=== PATIENT | female | born 1940 | race Caucasian/White ===

== ENCOUNTER 2024-11-17 17:35 | Emergency (ER) | payer MEDICARE ==
[~2024-11-17] VITALS: Ht 165.1 cm; Wt 51.7 kg
[~2024-11-17 17:35] MED LIST: ATENOLOL25 MG PO; ATORVASTATIN CA20 MG PO; BAYER CHEWABLE81 MG PO; HYDROCODON-ACE1 EA10 PO; LEVOTHYROXINE50 MCG PO; LIDODERM700 MG TOP; LISINOPRIL2.5 MG PO; MIRALAX17 GM PO; ONDANSETRON ODT8 MG PO
[2024-11-17] MEDS ORDERED: IBLOOD GLUCOSE TEST STRIP 1 EA TEST VI ONE (18:15)
[2024-11-17 18:28] LABS: BASOPHILS 0.4 % (0-2); EOSINOPHILS 0.3 % (0-6); HEMATOCRIT 39.5 % (35.0-50.0); HEMOGLOBIN 13.5 g/dL (12.0-18.0); LYMPHOCYTES 10.4 % (24-44); MCH 32.4 (27-36); MCHC 34.3 g/dl (30-36); MCV 94.7 fl (81-99); MONOCYTES 13.5 % (0-12); NEUTROPHILS 75.4 % (39-80); PLATELET COUNT 242 K/uL (140-440); RBC 4.17 M/ul (4.3-5.7); RDW 13.3 (10.5-15.0)
[2024-11-17 18:45] LABS: ALBUMIN 3.4 g/dL (3.4-5.0); ALBUMIN/GLOBULIN RATIO 0.81 (1.1-2.4); ALCOHOL, MEDICAL <3 ng/dL (<3); ALKALINE PHOSPHATASE 176 U/L (46-116); ALT (SGPT) 21 U/L (14-59); ANION GAP 11.9 (7-21); AST (SGOT) 18 U/L (15-37); BILIRUBIN, TOTAL 0.3 mg/dL (0.2-1.0); BUN/CREATININE RATIO 17.24 (6.0-28.6); CARBON DIOXIDE 28 mmol/L (21-32); CHLORIDE 102 mmol/L (98-107); CREATININE, SERUM 1.16 mg/dL (0.55-1.02); GLOMERULAR FILTRATION RATE,EST 46 mL/min (>60); POTASSIUM 3.9 mmol/L (3.5-5.1); PROTEIN, TOTAL 7.6 g/dL (6.4-8.2); UREA NITROGEN 20 mg/dL (7-18)
[2024-11-17 19:10] LABS: BILIRUBIN, URINE NEGATIVE (negative); BLOOD/HGB, URINE TRACE-I (Negative); KETONE, URINE NEGATIVE (Negative); LEUK ESTERASE, URINE SMALL (negative); NITRITE, URINE NEGATIVE (negative)
[2024-11-17 19:19] LABS: CRYSTALS, URINE NONE SEEN (0-1+); EPITHELIAL CELLS, URINE SQUAMOUS 3+ /lpf (0-1+); WHITE BLOOD CELLS, URINE 21-40 /HPF (0-5)
[2024-11-17 19:20] LABS: BACTERIA, URINE 1+ /hpf (negative); CASTS, URINE NONE SEEN \\lpf; COLLECTION TYPE, URINE CLEAN CATCH; REFLEX CULTURE, URINE No (No)
[2024-11-17 19:24] LABS: AMPHETAMINES, URINE NEGATIVE (NEGATIVE); BARBITURATES, URINE NEGATIVE (NEGATIVE); BENZODIAZEPINE, URINE NEGATIVE (NEGATIVE); BUPRENORPHINE, URINE NEGATIVE (NEGATIVE); CANNABINOID, URINE NEGATIVE (NEGATIVE); COCAINE, URINE NEGATIVE (NEGATIVE); ECSTASY, URINE NEGATIVE (NEGATIVE); FENTANYL, URINE NEGATIVE (NEGATIVE); METHADONE, URINE NEGATIVE (NEGATIVE); OPIATES, URINE NEGATIVE (NEGATIVE); OXYCODONE, URINE NEGATIVE (NEGATIVE); PHENCYCLIDINE, URINE NEGATIVE (NEGATIVE)
[2024-11-17] MEDS ORDERED: AMOXICILLIN/CLAVULANATE K 875 MG TAB PO ONE (19:45)
[2024-11-17] MEDS ORDERED: FAMOTIDINE 20 MG/ 2 ML VIAL IV ONE (19:45)
--- NOTE | 2024-11-17 19:54 | EKG ---
[facility] [address] [place] [address] Signed Sinus rhythm with premature atrial complexes in a pattern of bigeminy Otherwise normal ECG When compared with ECG of 12-MAY-2020 20:50, premature ventricular complexes are no longer present Confirmed by Frederick Costa MD ([id number]) on 11/17/2024 7:54:36 PM Electronically Signed By: FREDERICK COSTA MD 11/17/241953 PATIENT NAME: AMELIA LEE Sheela Electrocardiogram DATE OF : 36 PHYSICIAN: FREDERICK COSTA MD REPORT #: [id number] REPORT IS CONFIDENTIAL AND NOT TO BE RELEASED WITHOUT AUTHORIZATION
[2024-11-17 20:19] LABS: CORONAVIRUS COVID-19 AG NEGATIVE (NEGATIVE); INFLUENZA A AG NEGATIVE (NEGATIVE); INFLUENZA B AG NEGATIVE (NEGATIVE)
[2024-11-17] MEDS ORDERED: CEPHALEXIN500 MG PO (21:11)
[2024-11-17] MEDS ORDERED: CEPHALEXIN500 M1 PO (21:11)
[2024-11-17 21:20] VITALS: BP 138/91
== END 2024-11-17 21:20 | disposition home or self-care (01) ==
LOC: ED 17:35
PROVIDERS: Emergency Medicine; Internal Medicine
DX: N39.0 Urinary tract infection, site not specified (principal); I10 Essential (primary) hypertension; E03.9 Hypothyroidism, unspecified; F17.200 Nicotine dependence, unspecified, uncomplicated; Z88.6 Allergy status to analgesic agent; Z79.82 Long term (current) use of aspirin; Z79.890 Hormone replacement therapy; Z79.899 Other long term (current) drug therapy
CPT/HCPCS: 36415; 51701; 71045; 80053; 80307; 81001; 83880; 84484; 85025; 87088; 93005; 93010; 99285-25; G0480

== ENCOUNTER 2025-05-30 02:12 | Inpatient (IN) | payer MEDICARE ==
[~2025-05-30] VITALS: Ht 165.1 cm; Wt 54.2 kg
[2025-05-30] VITALS (23 sets, daily range): BP systolic 64–114; BP diastolic 36–81
[~2025-05-30 02:12] MED LIST changes: +CEPHALEXIN500 M1 PO; +CEPHALEXIN500 MG PO
[2025-05-30] MEDS ORDERED: NOREPINEPHRINE BITARTRATE 250 ML IV SCH ×2 (02:30→20:45)
[2025-05-30] MEDS ORDERED: SODIUM CHLORIDE 0.9% 1,000 ML IV PRN (02:30)
[2025-05-30] MEDS ORDERED: SODIUM CHLORIDE 0.9% 1,000 ML IV ONE (02:30)
[2025-05-30] MEDS ORDERED: MORPHINE SULFATE 4 MG/ML VIAL IV ONE (02:30)
[2025-05-30 02:42] LABS: BASOPHILS 0.2 % (0.1-1.2); EOSINOPHILS 1.0 % (0.7-5.8); LYMPHOCYTES 16.6 % (19.3-51.7); MCH 31.7 PG (25.6-32.2); MCHC 33.3 g/dL (32.2-35.5); MCV 95.4 fL (79.4-94.8); MONOCYTES 6.2 % (4.7-12.5); NEUTROPHILS 75.4 % (34.0-71.1); RBC 4.32 M/uL (3.93-5.22)
[2025-05-30 02:58] LABS: ALT (SGPT) 1.0 U/L (14-59); AST (SGOT) 18.0 U/L (15-37); GLOMERULAR FILTRATION RATE,EST 42.0 mL/min (>60); INR 1.06 (0.80-1.30); PROTEIN, TOTAL 7.6 g/dL (6.4-8.2); PROTIME 13.1 Sec (11.2-14.2); UREA NITROGEN 20.0 mg/dL (7-18)
[2025-05-30 03:03] LABS: LACTIC ACID, BLOOD 3.1 mmol/L (0.4-2.0)
[2025-05-30 03:23] LABS: BLOOD/HGB, URINE NEGATIVE (Negative); KETONE, URINE NEGATIVE (Negative); LEUK ESTERASE, URINE NEGATIVE (negative); NITRITE, URINE NEGATIVE (negative)
[2025-05-30] MEDS ORDERED: SODIUM CHLORIDE 0.9% 1,000 ML IV SCH (04:00)
[2025-05-30] MEDS ORDERED: ETOMIDATE 40 MG/20 ML VIAL IV ONE (04:00)
[2025-05-30] MEDS ORDERED: HYDROmorphone HCL 1 MG/ML SYR IV PRN (04:00)
[2025-05-30 06:02] LABS: ABO O; ANTIBODY SCREEN NEGATIVE; RH POSITIVE
[2025-05-30] MEDS ORDERED: LIDOCAINE HCL 2% 5 ML SDV ONE (06:08)
[2025-05-30] MEDS ORDERED: ROCURONIUM BROMIDE 50 MG/5 ML SYR ONE (06:08)
[2025-05-30] MEDS ORDERED: PIPERACILLIN/TAZOBACTAM 4.5 GM in SODIUM CHLORIDE 0.9% 100 ML IV SCH (06:15)
[2025-05-30] MEDS ORDERED: SEVOFLURANE 250 ML BTL ONE (06:22)
[2025-05-30] MEDS ORDERED: SUCCINYLCHOLINE IN 0.9% NACL 200 MG/10 ML SYRINGE ONE (06:29)
[2025-05-30] MEDS ORDERED: PROCHLORPERAZINE EDISYLATE 10 MG/2 ML VIAL IV PRN (07:30)
[2025-05-30] MEDS ORDERED: LIDOCAINE 2% VISCOUS 6 ML SYR TOP ONE (07:30)
[2025-05-30] MEDS ORDERED: LACTATED RINGER'S 1,000 ML IV SCH (07:30)
[2025-05-30] MEDS ORDERED: SEVOFLURANE 250 ML BTL INH ONE ×2 (07:50→14:49)
--- NOTE | 2025-05-30 07:50 | NUR ---
THIS RN TOOK OVER CARE AT THIS TIME FOR PETROLEUM REFINERY OPERATOR. PATIENT IS DROWSY BUT WAKEFUL. PATIENT NEEDS 2L OXYGEN AT THIS TIME. VITALS STABLE. WARM BLANKETS APPLIED D/T LOW CORE TEMP. PER MD FAMILY WAS CALLED AND MESSAGE LEFT FOR FAMILY. PATIENT IS RESTING ON HER BACK. SCDS PLACED. NG TUBE HAS BLOOD TINGED RETURN. DECREASED SUCTION TO LOW INT. SUCTION.
[2025-05-30] MEDS ORDERED: SOD PHOSPHATE/SOD BIPHOSPHATE 132 ML BTL PR SCH (08:00)
--- NOTE | 2025-05-30 08:21 | NUR ---
UR CLINICAL REVIEW: 2 MN FOR VERSALUS- PER VENETIAN BLIND WORKER MEETS INPT FOR COLONIC OBSTRUCTION WITH HYPOTENSION MEDICARE INPT 05/30/25 @ 0732 ORDER MATCHES REG NO AUTH REQUIRED PER MEDICARE GUIDELINES DISCHARGE TO HOME WHEN STABLE
--- NOTE | 2025-05-30 08:37 | NUR ---
05/30/25 0837 [address] Pamela 0733- PT TAKEN TO ROOM 127 VIA BED. PT SEMI MATOS IN BED, NON REACTIVE TO STIMULUS, OPA IN PLACE, BREATHING EVEN AND NON LABORED ON 6L O2 PER MASK. LR INFUSING TO L IJ TRIPLE LUMEN CENTRAL LINE. ABD FLAT, SOFT. ORTEGA CATHETER WITH DARK YELLOW URINE DRAINING. NG TUBE TO RIGHT NARE, CONNECTED TO LOW INTERMITTENT SUCTION DRAINING YELLOW CONTENTS. ALL MONITORS IN PLACE INCLUDING ORTEGA TEMP MONITORING. 0740- PT REACTIVE TO STIMULUS, OPA REMOVED AT THIS TIME. PT HAS NO VERBAL RESPONSE, CLOSES EYES. O2 LEFT IN PLACE. 0743- PT MOVED TO ROOM AIR, CONTINUES TO OPEN EYES. PULLS ARM AWAY WHEN READJUSTING PULSE OX. PT HAS RED COLOR DRAINING IN NG TUBE AT THIS TIME, PRIMARY CCU RN AWARE. 0747- PT SATS DOWN TO 89-91% ON ROOM AIR, BREATHING EVEN AND NON LABORED. PT WILL OPEN EYES TO VERBAL BUT FALLS BACK TO SLEEP. NO VERBAL RESPONSE. O2 PLACED AT 2L PER NC. 0750- DOE MOSCOSO AT BEDSIDE, REPORT GIVEN AT THIS TIME. CARE OF PT TURNED OVER AT THIS TIME.
[2025-05-30] MEDS ORDERED: FAMOTIDINE 20 MG/ 2 ML VIAL IV SCH (09:00)
--- NOTE | 2025-05-30 09:00 | NUR ---
PATIENT REMAINS DROWSY BUT MORE WAKEFUL AT THIS TIME. CHANGED PATIENT ON MEDIUM/LARGE STOOL. STOOL IS ALL LIQUID WITH 2 MEDIUM SIZED BALLS OF STOOL. LINEN, GOWN, AND ATTENDS CHANGED. PATIENT CLEANED AND NEW WARM BLANKETS PROVIDED. NG TUBE IN PLACE WITH MINIMAL RETURN.
--- NOTE | 2025-05-30 10:00 | NUR ---
PATIENTS DAUGHTER AT THE BEDSIDE AND VISITING WITH PATIENT. PER PATIENTS DAUGHTER PATIENT DRINKS VERY MINIMAL WATER, FOOD, AND FIBER AT HOME AND STATES PATIENT GOES THROUGH THESE IMPACTIONS OF STOOL AT LEAST 1 TIME EVERY YEAR. PATIENT IS MORE ALERT AND TALKING WITH FAMILY AND STAFF. PATIENT HAS ATTENDS IN PLACE. PATIENT DENIES ANY OTHER NEEDS AT THIS TIME.
[2025-05-30] MEDS ORDERED: POLYETHYLENE GLYCOL 3350 BOTTLE PO ONE (10:45)
--- NOTE | 2025-05-30 11:07 | NUR ---
PT NOT AVAILABLE FOR VISIT. PROVIDED PRAYER.
--- NOTE | 2025-05-30 11:23 | NUR ---
MD GUEVARA NOTIFIED OF PATIENTS BLOOD PRESSURES TRENDING DOWN. PER MDF GIVE 250ML BULUS OVER 30 MIN. SEE ORDERS.
--- NOTE | 2025-05-30 11:40 | NUR ---
PATIENTS BLOOD PRESSURE CONTINUESD TO BE IN THE 70S SYSTOLIC PER MD GIVE ADDITIONAL BOLUS OF 250MLS OVER 30 MIN AFTER 1ST ONE IS COMPLETED.
[2025-05-30] MEDS ORDERED: LACTATED RINGER'S 500 ML IV ONE ×3 (11:45→17:00)
--- NOTE | 2025-05-30 11:48 | NUR ---
ADDITIONAL BOLUS IS INFUSING. PATIENTS BLOOD PRESSURE DECREASED TO 60'S STYSTOLIC PER MONITOR. STARTED BACK ON LEVOPHED GTT. WILL TITRATE NEEDED AND NOTIFY MD GUEVARA. PATIENT REPOSITIONED AT THIS TIME. PATIENT REPORTING PAIN IN STOMACH. UNABLE TO GIVE PAIN MEDICATION AT THIS TIME D/T LOW BLOOD PRESSURES. EDUCATED PATIENT AND FAMILY OF PLAN FO CARE.
--- NOTE | 2025-05-30 12:59 | NUR ---
MD NOTIFIED THAT PATIENT IS COMPLAINAG OF INCREASED STOMACH PAIN. PATIENT BLOOD PRESSURES ARE 80-90'S STSTOLIC ON 5MCG/MIN OF LEVOPHED. NEW ORDERS FOR BC, LACTIC ACID, AND FLUID CHANGES, AND ABX CHANGES. LAB AT THE [facility] NOW WILL BE IN TO [facility] PATIENT ATTENDS AFTER MEAL ROOM HAND IS FINISHED.
--- NOTE | 2025-05-30 12:59 | NUR ---
PATIENT RESTING IN BED. SON AT BEDSIDE. ANSWERS QUESTIONS. PATIENT LIVES IN APARTMENT, NO STAIRS. SHE LIVES ALONE. PATIENT HAS WALKER FOR DME. DOES NOT DRIVE. FAMILY MEMBERS PROVIDE ASSISTANCE WITH TRANSPORTATION. DEMOGRAPHICS VERIFIED. PLAN TO DC TO HOME. POTENTIAL NEED FOR SNF OR HOME HEALTH PENDING TREATMENT. WILL CONTINUE TO CHECK IN PATIENT IMPROVES. NO KNOWN CM NEEDS AT THIS TIME.
[2025-05-30] MEDS ORDERED: KETOROLAC TROMETHAMINE 15 MG/ML VIAL IV PRN (13:00)
[2025-05-30] MEDS ORDERED: PIPERACILLIN/TAZOBACTAM 4.5 GM in DEXTROSE 5% 100 ML IV SCH (14:00)
[2025-05-30 14:54] LABS: BASOPHILS 0.3 % (0.1-1.2); EOSINOPHILS 0 % (0.7-5.8); LYMPHOCYTES 3.7 % (19.3-51.7); MCH 31.4 PG (25.6-32.2); MCHC 31.4 g/dL (32.2-35.5); MCV 100.0 fL (79.4-94.8); MONOCYTES 5.2 % (4.7-12.5); NEUTROPHILS 90.4 % (34.0-71.1); RBC 4.17 M/uL (3.93-5.22)
--- NOTE | 2025-05-30 15:21 | NUR ---
MD MARIA NOTIFIED OF WBC LABS. STAFF ATTEMPTED TO DECREASE LEVOPHED AND WAS NOT SUCCESSFUL. PATIENBTS BP DECREASED TO 70'S SYSTOLIC. PATIENT CURRENTLY ON 10MCG/MIN. MD WILL BE IN TO SEE PATIENT IN A COUPLE HOURS.
--- NOTE | 2025-05-30 16:24 | NUR ---
patient reports abd pain 7-8. patients states its in the stomach area. upon light palpitation patient is very tender across entire abd region increased in the right/left lower abd. per patient its the same amount of pain that brought her into the ed. patient denies any nausea at this time. lactic acid level 5.1 on repeat.
[2025-05-30] MEDS ORDERED: VITAMIN D325 MCG PO (17:32)
--- NOTE | 2025-05-30 17:33 | NUR ---
medications reconciled using pharmacy records and patient interview
--- NOTE | 2025-05-30 18:00 | NUR ---
DILMA HPROVIDERS IN AT THE PATIENTS BEDSIDE WITH FMAILY, PATIENT, AND RN TO DISCUSS PLAN OF CARE. PATIENT REMAINS ON 8-10 MCG/MIN OF NEVOPHED. WILL CONTINUE TO TITRATE NECCESSARY. PATIENT IS GETTING A BOLUS OF FLUID AT THIS TIME. PATIENT CHANGED TODAY FOR 3 BMS. PATIENTS ABD IS VERY SENSITIVE TO PALPATION. PATIENT RATES PAIN 8/10. PRN MEDICATION WAS GIVEN WITH SOME IMPROVEMENT. PATIENTS COLOR IS IMPROVED A TTHIS TIME. LESS MOTTELING AROUND HER KNEES. ORTEGA CATH IN PLACE WITH CONCENTRATED URINE. 15-20MLS/HR. WILL ASS FLAGYL FOR ABX COVERAGE. LABS IN AM. CONTINUE TO TREND LACTIC ACID TONIGHT. CONTINUE WITH MIRALAX DOWN NG TUBE PER MDS.
--- NOTE | 2025-05-30 18:06 | EKG ---
[facility] [address] [facility] [place] [address] Signed Normal sinus rhythm Normal ECG When compared with ECG of 17-NOV-2024 18:12, premature atrial complexes are no longer present Questionable change in QRS axis Confirmed by EVAN GUEVARA MD ([id number]) on 05/30/2025 6:06:33 PM Electronically Signed By: EVAN GUEVARA 05/30/25 1806 PATIENT NAME: AMELIA LEE Electrocardiogram DATE OF : 36 PHYSICIAN: EVAN GUEVARA REPORT #: [id number] REPORT IS CONFIDENTIAL AND NOT TO BE RELEASED WITHOUT AUTHORIZATION
--- NOTE | 2025-05-30 20:09 | NUR ---
PATIENT RESTING IN BED ALERT AND ORIETNED AT THIS TIME. BEDSIDE REPORT FROM VIANCA MOSCOSO
--- NOTE | 2025-05-30 20:30 | NUR ---
ASSESSMENT COMPLETE, SCHEDULED ENEMA DONE, PATIENT NOTED TO HAVE LARGE LIQUID STOOL AT THIS TIME. CHECKED IN AT PATIENT ROOM, UPDATED ON CURRENT LEVOPHED RATE 12MCG/MIN, B/P STABLE, UPDATED WITH RECENT LACTIC 3.8, ORDERED 500ML BOLUS X1 AT THIS TIME, ORDER ALSO PLACED FOR LEVOPHED DUE TO NO CURRENT ORDER IN NOV. PATIENT REPORTS NO NAUSEA AT THIS TIME.
[2025-05-30] MEDS ORDERED: NOREPINEPHRINE BITARTRATE 250 ML IV ONE ×2 (20:38→20:40)
[2025-05-30] MEDS ORDERED: SODIUM CHLORIDE 0.9% 500 ML IV SCH ×2 (21:00→22:00)
--- NOTE | 2025-05-30 22:00 | NUR ---
PATIENT RESTING QUIETLY IN BED, EYES CLOSED, NO DISTRESS NOTED, ARLEEN IS SLEEPING AT BEDSIDE IN RECLINER.
--- NOTE | 2025-05-30 23:00 | NUR ---
ROUNDING IN ROOM, THIS RN GAVE UPDATES ON LEVOPHED AND B/P TREND. DISCUSSED HER LOW GRADE FEVER, NEW ORDER FOR OFIRMEV PRN. NOTED TO THAT PATIENTS B/P IS LOWEST WHEN SHE LAYS ON HER LEFT SIDE, VS FLAT OF RIGHT SIDE. SAID HE HAS AN ECHO ORDER FOR THE AM.
[2025-05-30] MEDS ORDERED: ACETAMINOPHEN 1,000 MG/100 ML VIAL IV PRN (23:30)
[2025-05-31] VITALS (26 sets, daily range): BP systolic 76–141; BP diastolic 44–113
--- NOTE | 2025-05-31 00:55 | NUR ---
PATIENT AWAKE, REQUESTED ICE CHIPS FLAVORED WITH APPLE JUICE. ARLEEN AT BEDSIDE IN RECLINER.
--- NOTE | 2025-05-31 00:59 | NUR ---
PATIENT ALERT TO RN IN ROOM AT BEDSIDE, CHECK DEPENDS, STOOL NOTED, PATIENT CHNAGED, ORTEGA CARE PROVIDED. PATIENT ALERT AND ORIENTED AT THIS TIME. SHE SAID SHE WOULD LIKE TO GO SOMEWHERE TO SMOKE. THIS RN EXPLAINED TO PATIENT THAT THIS CAMPUS/PROPERTY IS COMPLETELY SMOKE FREE, THEN ASKED PATIENT IF SHE WOULD LIKE A NICOTINE PATCH, SHE SAID, "NO."
[2025-05-31] MEDS ORDERED: LACTATED RINGER'S 500 ML IV ONE ×2 (03:00→07:15)
[2025-05-31 05:17] LABS: MCH 31.5 PG (25.6-32.2); MCHC 32.7 g/dL (32.2-35.5); MCV 96.3 fL (79.4-94.8); RBC 3.49 M/uL (3.93-5.22)
[2025-05-31 05:32] LABS: ALT (SGPT) 26.0 U/L (14-59); AST (SGOT) 40.0 U/L (15-37); BANDS, MANUAL DIFF 28; GLOMERULAR FILTRATION RATE,EST 32.0 mL/min (>60); LYMPHOCYTES, MANUAL DIFF 7; MONOCYTES, MANUAL DIFF 2; NEUTROPHILS, MANUAL DIFF 63; PROTEIN, TOTAL 4.8 g/dL (6.4-8.2); UREA NITROGEN 27.0 mg/dL (7-18)
--- NOTE | 2025-05-31 06:50 | NUR ---
NOTIFIED AT NURSES STATION OF ABNORMAL LABS, NEW ORDERS OF 500ML BOLUS OF LR AND 4G MAGNESIUM. ALSO ASKED THIS RN TO PLACE ORDER FOR KUB THIS AM AND ECHO. PATIENT CHANGED FOR MEDIUM STOOL THIS AM, BARRIER CREAM WIPES AND ORTEGA CARE PROVIDED, NOTING THAT HER BUTTOCKS ARE STARTING STARTING TO BECOME IRRITATED FROM FREQUENT WIPING.
[2025-05-31] MEDS ORDERED: MAGNESIUM SULFATE 2 GM/50 ML BAG IV SCH (07:30)
--- NOTE | 2025-05-31 07:45 | NUR ---
REPORT RECIVED FROM TUBE MAN RN. PATIENT IS IN BED RESTING THIS MORNING WITH NGT TO LOW INT. SUCTION WITH DARK RETURN. PATIENT REMAINS ON LEVOPHED AT 10 MCG/MIN. PATIENT ON 3L NC OVERNIGHT. BED ALARM IN PLACE FOR PATIENT SAFETY. CALL LIGHT IN REACH.
--- NOTE | 2025-05-31 08:02 | NUR ---
PATIENT RESTING IN BED EYES CLOSE, ALERT TO RN AT BEDSIDE. REPORTS NO NEEDS AT THIS TIME. MONITOR WIRES AND IJ INFUSION LINES UNTANGLED, PATIENT TURNS FROM SIDE TO SIDE FREQUENTLY.
--- NOTE | 2025-05-31 08:20 | NUR ---
THIS RN IN TO DO IV CHECKS PATIENT RESTING IN BED. PARUL RN IN TO ASSIST PATIENT AND START NEXT BAG OF IV FLUIDS.
--- NOTE | 2025-05-31 08:45 | NUR ---
THIS RN BACK FROM MORNING MEETING AND CALLED IMMIDIATELY TO PATIENTS ROOM. RN PARUL AT BEDSIDE AND PATIENT HAS BECOME INCREASINGLY CONFUSED AND PULLING AT LINES/TUBES. PATIENT REMOVED NGT, OXYGEN, AND 1 IV DURING THIS TIME FRAME. MD NOTIFIED THAT HE IS NEEDED AT PATIENTS BEDSIDE AND WILL BE IN TO SEE PATIENT.
[2025-05-31] MEDS ORDERED: LEVOTHYROXINE SODIUM 50 MCG TAB PO SCH (09:00)
[2025-05-31] MEDS ORDERED: HALOPERIDOL LACTATE 5 MG/ML VIAL IV ONE (09:15)
--- NOTE | 2025-05-31 09:15 | NUR ---
BOTH PROVIDERS IN TO SEE PATIENT. PATIENT RECIVED DOSE 2.5MG OF HALDOL PER PROVIDER AND THEN FOLLOW-UP WITH REMAING 2.5MG IN 30 MIN IF NO IMPROVEMENT. MDS UPDATED OF PATIENT REMOVING LINES/TUBES THIS AM. PATIENT NEEDS FURTHER IMAGING AND WILL ATTEMPT ONCE PATIENT IS MORE COOPERATIVE. PATIENT IS ALERT TO WHERE SHE IS BUT IS CONFUSED ABOUT HER MEDICATIONS AND WHY SHE IS IN THE HOSPITAL. PATIENT STATES "I WANT TO JUST GO HOME". STAFF HAVE TRIED TO CALL HER DAUGHTER JOSE AND IT GOES STRAIGHT TO [employer]IC[employer]. PATIENT HAS OTHER FAMILY MEMBERS NUMBERS AND WILL ATTEPMT TO CALL OTHER FAMILY FOR COMPANIONSHIP AND SEE IF THAT HELPS PATIETNS AGITATION.
--- NOTE | 2025-05-31 09:38 | NUR ---
INTO SEE PATIENT. RANULFO MCNEAL AT BEDSIDE A 1 TO 1. PATIENT RESTLESS IN BED. PATIENT CONFUSED. FAMILY AWARE OF CURRENT STATUS PRIMARY NURSE UPDATED THEM.
[2025-05-31] MEDS ORDERED: HALOPERIDOL LACTATE 5 MG/ML VIAL ONE (09:48)
--- NOTE | 2025-05-31 10:00 | NUR ---
PATIENT FOLLOW-UP OF HALDOL WAS GIVEN PER MDS ORDER FOR A TOTAL OF 5MG HALDOL. PATIENT IS STILL ATTEPMTING TO PULL CENTRAL LINE. PATIENT WAS FINALLY AGREEABLE TO PLACING OXYGEN BACK ON, STAFF WERE USING BLOW BY TO TRY AND MAINTIAN OXYGEN IN THE UPPER 80'S.
--- NOTE | 2025-05-31 11:23 | NUR ---
VISITED WITH DAUGHTER DURING SPIRITUAL CARE ROUNDS; PT UNAVAILABLE. DAUGHTER EXPRESSED FRUSTRATION WITH PATIENT, INDICATED FAMILY SUPPORT EFFECTIVE SOURCE OF STRENGTH AND SUPPORT. WINDOW SHADE CUTTER AND MOUNTER PROVIDED SUPPORTIVE PRESENCE, HOSPITALITY, PRAYER, FACILITATED INTERACTION WITH THERAPY ANIMAL. DAUGHTER EXPRESSED GRATITUDE, PERSEVERENCE.
--- NOTE | 2025-05-31 11:41 | NUR ---
CALLED BY RN TO EVALUATE RESPIRATORY STATUS. PATIENT HAS OVER 50 YEAR SMOKING HISTORY AND HAS COPD PER PATIENT AND CONFIRMED BY FAMILY. BREATH SOUNDS WHEEZES. DR GUEVARA IS TAKING CARE OF PATIENT AND I GAVE MY RECOMMENDATIONS TO RN. ORDERS ENTERED.
[2025-05-31] MEDS ORDERED: ALBUTEROL SULFATE 0.083% 3 ML VIAL INH PRN (11:45)
[2025-05-31] MEDS ORDERED: ALBUTEROL/IPRATROPIUM 3 ML NEB INH SCH (12:00)
--- NOTE | 2025-05-31 12:15 | NUR ---
PATIENTS FAMILY AT BEDSIDE AND HAVE BEEN UPDATED ON PLAN OF CARE. 1 STAFF MEMBER HAS BEEN IN THE ROOM AT ALL TIMES TO PREVENT REMOVAL OF LINES. PATIENT HAS REMAINED CONFUSED AND PULLING AT LINES. PATIENTS IMAGING IS BACK AND BOTH MDS NOTIFIED OF IMAGING RESULTS. AWIATING PLAN OF CARE UPDATE.
--- NOTE | 2025-05-31 12:45 | NUR ---
PATIENT BECOMING INCREASINGLY MORE AGITATED AND TRYING TO GET OUT OF BED AND PULL LINES. PER MD GIVE DOSE OF 50MG OF BENEDRYL. SEE EMAR. STAFF AT BEDSIDE FOR PATIENTS SAFETY AND DISTRACTION METHODS USED. PATIENTS FAMILY HERE AND TRYING TO ASSIST PATIENT AND DISTRACT HER NEEDED.
--- NOTE | 2025-05-31 13:10 | NUR ---
Pt family member at bedside, Sophy Larson in with pt as well for 1:1. Pt is calm and is visiting with the family member, quietly.
--- NOTE | 2025-05-31 13:45 | NUR ---
MD BRANCH AT BEDSIDE TO DISCUSS PLAN OF CARE AND SURGICAL INTERVENTION NEEDS. FAMILY AGREEABLE TO PLAN OF CARE AND PATIENT HAVING SURGERY. PATIENTS CRISTIAN GARCIA ALSO STATES THAT HER NEPHEW IS TRYING TO MAKE IT BACK TO SEE HER AND IS THE AND WILL BE TAKING LEAVE TO [facility]. PER JOSE, STAFF CAN GIVE UPDATES OF PATIENTS MEDICAL CONTDITION TO [facility] WHEN THEY CALL FOR THE LEAVE REQUEST.
[2025-05-31] MEDS ORDERED: ROCURONIUM BROMIDE 50 MG/5 ML SYR ONE (14:00)
[2025-05-31] MEDS ORDERED: LIDOCAINE HCL 2% 5 ML SDV ONE (14:00)
[2025-05-31] MEDS ORDERED: fentaNYL citrate 100 MCG/2 ML VIAL ONE (14:00)
--- NOTE | 2025-05-31 14:00 | NUR ---
OR STAFF HERE TO TAKE PATIENT TO SURGERY. PATIENTS FAMILY AT BEDSIDE AND CONSENT HAVE BEEN SIGNED FOR PATIENT TO GO TO PROCEDURE, BY PATIENTS DAUGHTER. ABX SENT WITH OR STAFF.
[2025-05-31] MEDS ORDERED: PHENYLEPHRINE HCL IN 0.9% NACL 1 MG/10 ML SYR ONE (14:38)
[2025-05-31] MEDS ORDERED: NOREPINEPHRINE BITARTRATE 4 MG/4 ML AMP ONE (14:56)
[2025-05-31] MEDS ORDERED: ACETAMINOPHEN 1,000 MG/100 ML VIAL ONE (15:30)
[2025-05-31] MEDS ORDERED: Ropivacaine HCl 0.5% 30 ML VIAL ONE (15:37)
--- NOTE | 2025-05-31 15:37 | NUR ---
ASSEMBLER ERECTOR CHARTED VITALS AND REALIZED THAT SOME THINGS GOT MISSED SO I WENT BACK AND FIXED/UPDATED THEM.
[2025-05-31] MEDS ORDERED: SUGAMMADEX SODIUM 200 MG/2 ML ML ONE (15:39)
--- NOTE | 2025-05-31 16:45 | NUR ---
PATIENT BACK IN TO CCU WITH PACU RNS FOR RECOVERY. REPORT RECIVED FROM ANETHESIA PROVIDER AND .
[2025-05-31] MEDS ORDERED: fentaNYL citrate 50 MCG/ML SDV IV PRN (17:15)
[2025-05-31] MEDS ORDERED: NALOXONE HCL 0.4 MG SYR IV PRN (17:15)
[2025-05-31] MEDS ORDERED: IBLOOD GLUCOSE TEST STRIP 1 EA TEST VI PRN (17:15)
--- NOTE | 2025-05-31 17:30 | NUR ---
05/31/25 1730 Siria Lay 1632- PT ARRIVES TO CCU ROOM 127. PT IS NON REACTIVE TO VERBAL AND TACTILE STIMULI. VITAL SIGNS OBTAINED. PT HAS ORAL AIRWAY IN PLACE ON 6L OF O2 VIA MASK. SURGICAL SITE IS CDI. ORTEGA IN PLACE. CENTRAL LINE INFUSING. BREATHING IS EVEN AND UNLABORED. MOVER HELPER AT BEDSIDE. O2 SATS ARE IN THE MID 80S. O2 IS INCREASED TO 10L. 1647- PT SUCTIONED WITH SMALL AMOUNT OF THICK SPUTUM NOTED. ORAL AIRWAY REMOVED WITH PT BEGINNING TO REACH WITH HER HANDS, ALTHOUGH PT IS UNABLE TO FOLLOW DIRECTIONS AT THIS TIME. 1654- RESPIRATORY THERAPY CALLED FOR ALBUTEROL TREATMENT. O2 SATS INCREASE TO LOW 90S BUT DECREASE TO MID TO HIGH 90S OFF AND ON. 1658- PT TALKIGN WITH BLANKA QUILES SOME. PT DENIES PAIN AT THIS TIME. 1704- O2 INCREASED TO 15L WITH O2 SATS IN THE MID 80S. DIFFERENT O2 MONITIORS TRIED, OFF AND ON. 1717- RESPIRATORY THERAPY AND MOVER HELPER AT BEDSIDE. PT SATS CONTINUE TO BE IN THE MID 80S.
[2025-05-31 17:51] LABS: BASE EXCESS, BLOOD GAS -8.4 mmol/L (-2-2); HCO3, BLOOD GAS 17.2 mmol/L (22-26); O2 SATURATION, BLOOD GAS 86.2 % (95.0-100.0); OXYGEN RECEIVED, BLOOD GAS 15L; PCO2, BLOOD GAS 32.6 mmHg (35-45); PH, BLOOD GAS 7.32 (7.35-7.45); PO2, BLOOD GAS 47 mmHg (80-100); TOTAL CO2, BLOOD GAS 18.2
--- NOTE | 2025-05-31 18:11 | NUR ---
THIS RN TOOK OVER CARE AT THIS TIME. PACU STAFF, RT, RN, AND ANESTHESTHIA PROVIDER IN AT BEDSIDE TO ASSESS PATIENT. STAFF HAVE HAD DIFFICULTY GETTING A GOOD OXYGEN READING. ABG WAS DONE. PATIENT WAS PLACED ON 6L NC AND SPO2 READING BNEST CURRENTLY ON PATIENTS TOE WITH A GOOD WAVEFORM AND CONSITENT READINGS. PATIENTS DAUGHTER NOW IN AT BEDSIDE AND THIS RN WITH PATIENT TO PREVENT LINE REMOVALS.
[2025-05-31] MEDS ORDERED: MORPHINE SULFATE 4 MG/ML VIAL IV PRN (18:30)
--- NOTE | 2025-05-31 18:57 | NUR ---
PATIENT IS MORE RELAXED BUT REMAINS CONFUSED AT THIS TIME. APTIENT OXYGEN DOWN TO 3L NC. PATIENTS SPO2 93%. PATIENTS FAMILY IN TO SEE HER AND VISIT. PATIETNS COLOR HAS IMPROVED SINCE ARRIVAL. STAFF AT BEDSIDE FOR SAFETY.
--- NOTE | 2025-05-31 19:45 | NUR ---
SHIFT REPORT RECEIVED. PATIENT RECEIVING NEB TREATMENT; RT IN ROOM. FAMILY AT BEDSIDE. IV FLUIDS AND NOREPI RUNNING PER ORDER; CENTRAL LINE WNL. PATIENT ON MONITOR WITH HR IN THE 90'S; SINUS RHYTHM. FREQUENT VS FOR PRESSURE SUPPORT MONITORING. PATIENT TOLERATING 3L NC.
--- NOTE | 2025-05-31 20:27 | NUR ---
PATIENT RESTING IN BED TALKING WITH HER FAMILY. PATIENT IS WANTING TO GO OUTSIDE TO SMOKE AND REQUIRES FREQUENT REMINDERS THAT SHE HAD SURGERY AND NEEDS TO REST IN BED. PATIENT CAN BE REDIRECTED AT TIMES AND BECOMES AGITATED AT OTHER TIMES. VACCINATOR AT BEDSIDE FOR SAFETY.
--- NOTE | 2025-05-31 20:42 | NUR ---
PATIENT REMAINS AGITATED AND RESTLESS. QA SOFTWARE TEST ENGINEER AT BEDSIDE ATTEMPTING TO COMFORT PATIENT. HR INCREASED FROM 90'S TO THE 140'S FOR ABOUT 3 MINS. PATIENT NOT SYMPTOMATIC. PATIENT DENIED WANTING A NICOTINE PATCH. DENIED PAIN. STATES "I JUST WANT TO SLEEP" AND ASKED TO BE ALLOWED TO LAY DOWN. ASSURED PATIENT SHE IS LAYING IN BED; PATIENT DOES NOT BELIEVE STAFF. DISCUSSED WITH ; ONE TIME DOSE OF IV BENADRYL ORDERED. SEE EMAR. VERIFIED WITH REPEAT BACK.
--- NOTE | 2025-05-31 21:09 | NUR ---
PATIENT PROVIDED MEDS PER ORDER. PATIENT IS ATTEMPTING TO REST AND IRRITATED BY PATIENT CARES. DENIED PAIN BUT DID REPORT THAT HER STOMACH "DOESN'T FEEL RIGHT". PRN ZOFRAN PROVIDED. ABD IS MILDLY DISTENDED. BOWEL SOUNDS HYPOACTIVE. MIDLINE INCISION COVERED; NO DRAINAGE NOTED. OSTOMY SITE APPEARS A DULL RED/BROWN COLOR. SMALL AMOUNT OF SEROSANG DRAINAGE NOTED. ORTEGA IN PLACE; OUTPUT IS QS AND CLEAR. CENTRAL LINE SITE WNL; IV FLUIDS PER ORDER. NOREPI PER FLOWSHEET. PATIENT REMAINS ORIENTED TO SELF ONLY. PERIODONTAL ASSISTANT AT BEDSIDE FOR SAFETY.
--- NOTE | 2025-05-31 22:30 | NUR ---
PATIENT MORE RESTLESS AND ATTEMPTING TO REMOVE NC 02 AND GET OUT OF BED. PATIENT IS DIFFCULT TO CONSOLE AND IS ORIENTED ONLY TO SELF. PATIENT REDIRECTED TO REST AND ASSURED SHE IS SAFE. PATIENT CONTINUES TO BE RESTLESS IN BED AND TRYING TO SIT UP. UNSURE OF PATIENT'S CAUSE OF RESTLESSNESS; PRN PAIN MEDS PROVIDED. PATIENT REPOSITIONED IN BED AND WARM BLANKET APPLIED. PATIENT STARTING TO REST EASIER AT THIS TIME. WHARF LABORER REMAINS AT BEDSIDE.
--- NOTE | 2025-05-31 23:39 | NUR ---
PATIENT APPEARS RESTFUL. TITRATING NOREPI PER FLOWSHEET TO MAINTAIN MAP >65. IV FLUIDS AND ABX INFUSING PER ORDER. SALVAGE DETERMINER AT BEDSIDE.
[2025-06-01] VITALS (22 sets, daily range): BP systolic 79–128; BP diastolic 41–106
--- NOTE | 2025-06-01 01:10 | NUR ---
PATIENT APPEARS RESTFUL IN BED. TIER AND DETONATOR REPORTS SHE HAS BEEN MOVING AROUND SOME BUT NOT PULLING OR TRYING TO GET UP. CURRENTLY EYES ARE CLOSED. VS STABLE.
--- NOTE | 2025-06-01 03:30 | NUR ---
PATIENT RESTING WITH EYES CLOSED. HAS BEEN OCCATIONALLY PULLING AT LINES BUT EASILY REDIRECABLE. VS STABLE. 3L NC IN PLACE. NOREPI CONTINUED TO MAINTAIN MAP > 65.
--- NOTE | 2025-06-01 05:00 | NUR ---
patient resting in bed. responds to her name. reports being tired. vs stable. bed alarm active. tolerating 4l nc.
--- NOTE | 2025-06-01 06:15 | NUR ---
PATIENT AWAKE AND REMOVING O2. DESATS TO THE 70'S ON RA. PATIENT PLACED BACK ON NC AT 6L AND DOES NOT RECOVER ABOVE 85%. 10L OXY MASK PLACED AND RT CALLED FOR NEB. RT IN ROOM FOR TREATMENT AND SET UP HIGH FLOW O2. PATIENT DENIED FEELING SOB. ONLY TALKED TO 2-3 WORD SENTENCES. Sp02 90% ON 10L NC.
--- NOTE | 2025-06-01 06:45 | NUR ---
AT BEDSIDE. UPDATED PROVIDED. LABS DRAWN FROM CENTRAL LINE PER PROTOCOL. PATIENT IS FORGETFUL BUT EASY TO REDIRECT AT THIS TIME. PATIENT DEMANDING WATER AND TO GO SMOKE. ENCOURAGED PATIENT TO REST. CALL LIGHT IN REACH. BED ALARM ACTIVE.
[2025-06-01 06:54] LABS: MCH 31.6 PG (25.6-32.2); MCHC 33.7 g/dL (32.2-35.5); MCV 93.9 fL (79.4-94.8); RBC 3.29 M/uL (3.93-5.22)
[2025-06-01 07:07] LABS: ALT (SGPT) 25.0 U/L (14-59); AST (SGOT) 57.0 U/L (15-37); GLOMERULAR FILTRATION RATE,EST 39.0 mL/min (>60); PROTEIN, TOTAL 4.5 g/dL (6.4-8.2); UREA NITROGEN 22.0 mg/dL (7-18)
[2025-06-01 07:15] LABS: BANDS, MANUAL DIFF 5; LYMPHOCYTES, MANUAL DIFF 7; MONOCYTES, MANUAL DIFF 4; NEUTROPHILS, MANUAL DIFF 84
--- NOTE | 2025-06-01 08:26 | NUR ---
ECHO IN PROGRESS
--- NOTE | 2025-06-01 09:00 | NUR ---
RN AT BEDSIDE WITH ROUNDING - PT SITTING UP IN BED WATCHING TV. PT ORIENTED TO PLACE AND YEAR AND SELF. RESTLESS IN BED AND MAKES STATMENTS THAT STILL INDICATE PT IS STILL DISORIENTED TO SURROUNDINGS/SITUATION. 1:1 SITTER AT BEDSIDE FOR LINE/TUBE SAFETY. PT DENIES PAIN AND NAUSEA. MIDLINE DRESSING C/D/I. OSTOMY SITE PINK WITHOUT DRAINAGE. SCDS IN PLACE. LUNGS COARSE THROUGHOUT, EXP WHEEZE WITH RIGHT LOWER SIDE MORE TIGHT THAN LEFT. CURRENT 02 ON 10L HIGH FLOW WITH SPO2 88%. NOREPI TITRATED DOWN TO 4MCG/KG/HR. PT PROVIDED SWAB FOR MOUTH, COMPLAINS OF NEEDING WATER, CURRENT DIET NPO.
--- NOTE | 2025-06-01 10:00 | NUR ---
SPOKE WITH FAMILY AND PATIENT ABOUT POTENTIAL DISCHARGE PLANNING. PATIENT REFUSES SNF. LET THEM KNOW PT/OT WILL HAVE A RECCOMENDATION ON DISCHARGE. WILL WAIT FOR THERE EVALUATION. LET THEM KNOW I WILL BRING THEM PAID CAREGIVER PHAMPLETS.
--- NOTE | 2025-06-01 10:22 | NUR ---
DR. GUEVARA NOTIFIED VIA TELEPHONE OF PT HAVING 2 EPISODES OF SVT WITH PROLONGED RATES ABOVE 150'S. EKG IN PROGRESS. PT DENIES SYMPTOMS WITH THIS. NO NEW ORDERS.
--- NOTE | 2025-06-01 11:23 | NUR ---
PT NOT AVAILABLE FOR VISIT. PROVIDED PRAYER.
--- NOTE | 2025-06-01 11:25 | NUR ---
CURRENT POC DISCUSSED WITH SURGEON AT RN STATION. SURGEON NOTIFIED OF SVT EVENTS THIS AM AND EKG. PLAN FOR PT/OT ORDERS, ADAVANCE TO FULL LIQ DIET, AND RT EVAL AND TREAT ORDER. RT LIDIA UPDATED AND AWARE OF SURGEON REQUEST FOR AGGRESSIVE TX PER CXR THIS AM. FAMILY AT BEDSIDE, ALL UPDATED ON PLAN OF CARE. DAUGHTER GERMÁN ENCOURAGED TO HAVE OTHER FAMILY MEMBERS NOT LISTED ON PT DEMOGRAPHICS TO CALL HER OR FAMILY REP FOR UPDATES INSTEAD OF HAVING LONG LIST OF FAMILY "OK TO TALK TO". DAUGHTER STATES UNDERSTANDING. PT DENIES WANTING NICOTINE PATCH OR REPLACEMENT - ASKING FAMILY AND STAFF TO TAKE HER OUTSIDE TO SMOKE.
--- NOTE | 2025-06-01 11:54 | PATH ---
[facility] [address], [place] [address] Signed SPECIMEN(S): A RECTAL MASS BIOPSY SPECIMEN SOURCE: A. 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 - There is insufficient cellularity for MSI testing on these small biopsies. COMMENT: As part of [facility]' Quality Improvement Program, this case was reviewed by another member of our pathology staff. DWS:[email or web address] MICROSCOPIC EXAMINATION: Histologic sections of all submitted blocks are examined by light microscopy. These findings, together with the gross examination, support the pathologic diagnosis. GROSS DESCRIPTION: The specimen, labeled and designated "Julio Cesar, rectal mass biopsy," is received in formalin and consists of nine vanegas soft tissue fragments, ranging from 0.1-0.3 cm. Entirely submitted in (A1). VB (under the direct supervision of a pathologist) The Gross Description was prepared using a voice recognition system. The report was reviewed for accuracy; however, sound-alike word errors, addition and/or deletions may occur. If there is any question about this report, please contact Client Services. PERFORMING LABORATORY: Technical component was performed by [facility], [address] [place] [id number] (CLIA# [id number]). Professional interpretation was performed by [facility], [address] [place] [id number] (CLIA#: [id number]). Diagnostician: James Lynch MD PATIENT NAME: AMELIA LEE PATHOLOGY DATE OF : 36 REPORT #: [id number] PHYSICIAN: [facility] PATHOLOGY PCP: RAMONITA MCGUIRE MD REPORT IS CONFIDENTIAL AND NOT TO BE RELEASED WITHOUT AUTHORIZATION [address] [address] Signed Pathologist Electronically Signed 06/01/2025 Copies: ~ PATIENT NAME: AMELIA LEE PATHOLOGY DATE OF : 36 REPORT #: [id number] PHYSICIAN: MGEHNA PATHOLOGY PCP: RAMONITA MCGUIRE MD REPORT IS CONFIDENTIAL AND NOT TO BE RELEASED WITHOUT AUTHORIZATION
--- NOTE | 2025-06-01 12:38 | NUR ---
OSTOMY SUPPLIES ORDERED FAXED TO [facility]
--- NOTE | 2025-06-01 12:46 | NUR ---
PT UP TO CHAIR WITH PT/OT EVAL - PT UNCOORDINATED WITH USING WALKER, UNSTEADY STANDING. WITH SITTING ON EDGE OF BED PT C/O LOWER LEFT CHEST PAIN, PT STATES RESOLVED ON OWN, UNABLE TO DESCRIBE. BP AND PULSE STABLE. PT PROVIDED FULL LIQ TRAY, HAIR AND FACE WASHED. LUNG SOUNDS REMAIN COARSE WITH EXP WHEEZE IN BASES, CURRENT 02 AT 7L. NOREPI AT 6MCG/KG/HR. FAMILY IN ROOM.
--- NOTE | 2025-06-01 13:30 | NUR ---
PATIENT ASKING TO GET BACK TO BED. PRIMARY NURSE REPORTS SHE HAS NOT BEEN UP VERY LONG AND WOULD LIKE TO HAVE HER SIT UP LONGER TO PROMOTE IMPROVED AIR FLOW IN LUNGS. DISCUSSED THIS WITH PATIENT AND SHE AGREES TO STAY UP LONGER IN RECLINER FAMILY AT CHAIR SIDE ALSO AGREES. FAMILY ALSO REPORTS SHE VERY MUCH LIKES MASHED POTTOES AND APPLE SAUCE WHEN HER DIET PERMITS.
--- NOTE | 2025-06-01 14:05 | NUR ---
DC REVIEW: IV FLUIDS, IV ANTIBIOTICS, OSTOMY EDUCATION, PT/OT TREAT, IV LEVOPHED PLAN TO DC TO HOME, PATIENT AND FAMILY RESISTENT TO SNF PLACEMENT NEW OSTOMY, NEEDS EDUCATION ON CARE. RECOMMEND SNF, WILL NOT GO. STAFF PROVIDED EDUCATION AND INFORMATION FOR CAREGIVER ASSISTANCE AT HOME. ADD: PENDING
[2025-06-01] MEDS ORDERED: DIGOXIN 500 MCG/2 ML AMP IV ONE (14:30)
--- NOTE | 2025-06-01 14:32 | NUR ---
DR. GUEVARA NOTIFIED OF PT RATES >150 IN SVT WITH OCCASIONAL AFIB, PAUSES AND RATE VARIABILITY. EKG IN PROGRESS. TELEPHONE ORDER FOR 500MG IV DIGOXIN NOW.
--- NOTE | 2025-06-01 14:50 | NUR ---
IV DIGOXIN ADMINISTERED. NO CHANGE IN PT RATE AT THIS TIME. SUSTAINING GREATER THAN 140. PT DENIES DISCOMFORT OR CHANGE IN FEELING. WANTS TO STAND AND AMBULATE BACK TO BED FROM CHAIR - REPOSISTIONED AT THIS TIME. NOREPI GTT TITRATED TO 2MCG/KG/HR. FAMILY AT BEDSIDE.
[2025-06-01] MEDS ORDERED: METOPROLOL TARTRATE 5 MG/5 ML VIAL ONE (15:14)
[2025-06-01] MEDS ORDERED: METOPROLOL TARTRATE 5 MG/5 ML VIAL IV ONE (15:15)
[2025-06-01] MEDS ORDERED: IPRATROPIUM BROMIDE 2.5 ML VIAL INH SCH (16:00)
--- NOTE | 2025-06-01 17:37 | NUR ---
PT REPOSISTIONED IN BED, NOTED TO HAVE INCREASINGLY AUDIBLE WHEEZING. NO CRACKLES NOTED. RR IN 30'S, 02 DEMAND INCREASING. . HR ELEVATED IN 130'S. NOREPI GTT OFF AT THIS TIME. UPDATED ON ALL.
[2025-06-01] MEDS ORDERED: METOPROLOL TARTRATE 25 MG TAB PO ONE ×2 (17:45→18:00)
--- NOTE | 2025-06-01 18:48 | NUR ---
PT REPOSISTIONED UP IN BED - SWALLOWS PO MED WITHOUT DIFFICULTY. POOR APPETITE FOR DINNER TRAY.
--- NOTE | 2025-06-01 19:30 | NUR ---
SHIFT REPORT RECEIVED. PATIENT RESTING IN BED. FAMILY AT BEDSIDE.
[2025-06-01] MEDS ORDERED: ARFORMOTEROL TARTRATE 15 MCG/2 ML VIAL INH SCH (20:00)
[2025-06-01] MEDS ORDERED: BUDESONIDE 0.5 MG/2 ML VIAL INH SCH (20:00)
[2025-06-01] MEDS ORDERED: METOPROLOL TARTRATE 25 MG TAB PO SCH (20:30)
--- NOTE | 2025-06-01 20:33 | NUR ---
1999 PATIENT ACCIDENTALLY HIT THE CALL LIGHT. REQUEST HER PURSE FROM THE FLOOR THAT HAD FALLEN, PLACED ON BEDSIDE TABLE. PATIENT ASSISTED TO REPOSITION AND CURTAIN PULLED PER REQUEST. BED ALARM ON. 2004 SMELL OF SMOKE ALERTED STAFF TO PATIENT'S BEDSIDE. PATIENT SMOKING A CIGARETTE IN BED. NURSE REMOVED CIGARETTE IMMEDIATELY AND RAN UNDER WATER IN THE SINK. SECOND RN, FEMI, TO BEDSIDE TO ASSIST IN REMOVING LIGHTERS AND CIGARETTES FROM PATIENT'S HANDS. PATIENT AGITATED AND BELEIVES STAFF IS INVADING HER APARTMENT. ATTEMPTS MADE TO REORIENT AND CALM PATIENT. PATIENT IS SEVERELY AGITATED. CONTACTED AND PATIENT'S DAUGHTER CALLED. 2014 AND PATIENT'S FAMILY AT BEDSIDE. PATIENT'S FAMILY TOOK PATIENT'S ENTIRE PURSE INCLUDING LIGHTERS AND CIGARETTES. PATIENT REFUSED A NICOTINE PATCH.
[2025-06-01] MEDS ORDERED: SODIUM CHLORIDE 0.9% 1,000 ML IV ONE (21:00)
[2025-06-01] MEDS ORDERED: QUETIAPINE FUMARATE 25 MG TAB PO SCH (21:00)
[2025-06-01] MEDS ORDERED: METOPROLOL TARTRATE 25 MG TAB PO PRN (21:00)
--- NOTE | 2025-06-01 21:00 | NUR ---
DISCUSSED PATIENT'S BP AND HR WITH . PLANS TO CHANGED SCHEDULED LOPRESSOR TO PRN; SEE EMAR. PATIENT ALSO PROVIDED SEROQUIL DUE TO AGITATION.
--- NOTE | 2025-06-01 21:30 | NUR ---
MEDS GIVEN PER ORDER. PATIENT REMAINS ALERT BUT CONFUSED. EVEN WITH FREQUENT REORIENTING PATIENT BELIEVES SHE IS IN HER APARTMENT. ALL EFFORTS MADE TO REASSURE PATIENT AND MAINTAIN SAFETY. PATIENT'S VS STABLE. TOLERATING HIGH FLOW O2. DENIED FEELING SOB. DENIED GI UPSET OR PAIN. TAKING SMALL SIPS OF WATER BUT NOT MUCH ORAL INTAKE INTEREST. PATIENT ABD IS MILDLY DISTENDED AND TENDER. BOWEL SOUNDS ARE ACTIVE. OSTOMY SITE WNL; DRESSING INTACT. STOMA IS DULL PINK. NO OUTPUT OF YET. ORTEGA CARE DONE; PATIENT IS MORE AGITATED WITH THIS BUT EVENTUALLY ALLOWS CARES. BED ALARM ACTIVE. PATIENT REQUEST DOORS CLOSED AND LIGHTS OFF. LIGHTS OFF AND CURTAIN CLOSED.
--- NOTE | 2025-06-01 22:15 | NUR ---
STAFF IN ROOM FRQUENTLY DUE TO PATIENT ATTEMPTING TO EXIT THE BED OR PULLING AT MONTIOR CORDS. PATIENT REQUIRES FREQUENT REASSURANCE AND REMINDERS THAT SHE IS IN THE HOSPITAL AND NOT HOME. PATIENT VS STABLE.
--- NOTE | 2025-06-01 23:00 | NUR ---
PATIENT REMAINS RESTLESS IN HER BED AND REPORTS DIFFICULTY SLEEPING. PATIENT DENIED PAIN OR GI UPSET; FLACC SCORE IS 6/10 FOR PAIN. ASSISTED TO REPOSITION. PRN MORPHINE PROVIDED. IV ABX STARTED PER ORDER; CENTRAL LINE SITE WNL. IV FLUIDS CONTINUE. BP STABLE. HR IS VERIABLE; SINUS 90-110 BMP. TOLERATING 10L HIGH FLOW. LUNG SOUNDS ARE COARSE WITH EXP WHEEZING THROUGHOUT. PATIENT STARTING TO SETTLE AND APPEARS MORE RESTFUL. BED ALARM ACTIVE. CALL LIGHT IN REACH.
[2025-06-02] VITALS (13 sets, daily range): BP systolic 78–194; BP diastolic 41–71
--- NOTE | 2025-06-02 00:30 | NUR ---
PATIENT APPEARS RESTFUL IN BED. REPOSITIONED BP CUFF. PATIENT TOLERATING 10L NC. VS STABLE.
--- NOTE | 2025-06-02 02:01 | NUR ---
TITRATED PATIENT TO 6L NC. Sp02 96-98% ON 10L NC. WARM BALNEKTS APPLIED DUE TO PATIENT'S TEMP ORTEGA READING. PATIENT THEN WOKE AND WAS AGITATED WITH RN FOR BEING IN HER HOUSE. ATTEMPTED TO REORIENT PATIENT WITH MINIMAL SUCESS. ENCOURAGED PATIENT TO REST.
--- NOTE | 2025-06-02 03:30 | NUR ---
PATIENT REMAINS VERY AGITATED. PATIENT ATTEMPTING TO EXIT THE BED BUT IS UNABLE TO SIT UP WITHOUT ASSIST. PATIENT IS CONFUSED AND WANTING TO LEAVE. NOT ABLE TO REDIRECT PATIENT AT ALL. PATIENT CALLING FOR HELP REPEATEDLY FOR 20-30 MINS. RN IN ROOM AND SITTING AT BEDSIDE TO MAINTAIN SAFETY FOR PATIENT. PATIENT EVENTUALLY STOPS YELLING AND APPEARS TO BE RESTING AGAIN. REFUSING PULSE OX; NC IS IN PLACE. SPOT CHECK BY RT FOUND Sp02 TO BE 89%. ALLOWED PATIENT TO REST; CONTINUED TO CHECK ON PATIENT FREQUENTLY. BED ALARM ACTIVE.
--- NOTE | 2025-06-02 04:45 | NUR ---
PATIENT RESTING WITH EYES CLOSED. NOTED NC WAS REMOVED; NC REPLACED AT THIS TIME. PATIENT WOKE AND YELLED AT STAFF TO LEAVE HER ROOM.
--- NOTE | 2025-06-02 05:40 | NUR ---
attempts made to put pulse ox back on and bp cuff on. patient refusing. nc is in place.
--- NOTE | 2025-06-02 06:30 | NUR ---
LABS DRAWN PER ORDER. PATIENT IS AGITATED AND ATTEMPTING TO REFUSE CARE. ABLE TO GET ONE BP AND SPOT CHECK Sp02 90% ON 8L. PATIENT DENIED PAIN. DENIED TAKING ORAL FLUIDS. PATIENT ORTEGA EMPTIED FOR 275 MLS OF CONCENTRATED URINE. PATIENT REFUSED ANY OTHER CARES. BED ALARM ACTIVE.
[2025-06-02 06:34] LABS: BASOPHILS 0.7 % (0.1-1.2); EOSINOPHILS 0.2 % (0.7-5.8); LYMPHOCYTES 1.6 % (19.3-51.7); MCH 31.5 PG (25.6-32.2); MCHC 33.6 g/dL (32.2-35.5); MCV 93.9 fL (79.4-94.8); MONOCYTES 3.3 % (4.7-12.5); NEUTROPHILS 93.6 % (34.0-71.1); RBC 2.95 M/uL (3.93-5.22)
[2025-06-02 06:50] LABS: ALT (SGPT) 29.0 U/L (14-59); AST (SGOT) 86.0 U/L (15-37); GLOMERULAR FILTRATION RATE,EST 54.0 mL/min (>60); PROTEIN, TOTAL 4.1 g/dL (6.4-8.2); UREA NITROGEN 19.0 mg/dL (7-18)
[2025-06-02] MEDS ORDERED: DEXTROSE 50% 50 ML SYR ONE (06:56)
--- NOTE | 2025-06-02 07:08 | NUR ---
REPORTED PATIENT'S BLOOD GLUCOSE TO ; 1/2 AMP D50 GIVEN AND IV FLUIDS SWITCHED. PATIENT IS ALERT, AGITATED AND NOT AGREEABLE TO ANY CARES. ABLE TO PROVIDE IV MEDS.
[2025-06-02] MEDS ORDERED: DEXTROSE 50% 50 ML SYR IV ONE (07:15)
[2025-06-02] MEDS ORDERED: DEXTROSE 5% - LACTATED RINGERS 1,000 ML IV SCH (07:15)
--- NOTE | 2025-06-02 07:15 | NUR ---
RECHECK OF BLOOD GLUCOSE IMPROVED. PATIENT IV FLUIDS SWITCHED TO D5LR PER ORDERS. PATIENT REMAINS AGITATED AND REFUSING CARES.
--- NOTE | 2025-06-02 07:24 | NUR ---
PT REPOSISTIONED UP IN BED FOR CXR. PT CONFUSED, DISORIENTED AND NOT REDIRECTABLE. GRABBING AT ITEMS IN AIR. BED ALARM ON.
[2025-06-02] MEDS ORDERED: METOPROLOL TARTRATE 5 MG/5 ML VIAL IV ONE (07:45)
[2025-06-02] MEDS ORDERED: IBLOOD GLUCOSE TEST STRIP 1 EA TEST VI PRN (09:00)
[2025-06-02] MEDS ORDERED: POTASSIUM CHLORIDE 40 MEQ,LIDOCAINE HCL 1% 40 MG in DEXTROSE 5% 250 ML IV ONE (09:00)
--- NOTE | 2025-06-02 09:22 | NUR ---
RN IN ROOM ROUNDING WITH MD - FAMILY ARRIVE AT BEDSIDE. PT HAD JUST BEGAN TO REST WITH EYES CLOSED BEFORE THIER ARRIVAL. FAMILY UPDATED ON EVENTS OF NIGHT AND PTS LACK OF SLEEP, DISORIENTATION AND REFUSAL OF CARE. PT NOW IN NSR AFTER IV LOPRESSOR PUSH. BP STABLE. CURRENTLY ON 8L 02 SPOT PT CONTINUES TO HAVE POOR APPETITE, NOT INTERESTED IN BREAKFAST EVEN WITH STAFF ASSISTANCE IN FEEDING. MIDLINE DRESSING C/D/I.
--- NOTE | 2025-06-02 10:24 | NUR ---
PT RESTING IN BED WITH HOB ELEVATED, EYES CLOSED, SLEEPING. DOES NOT WAKE WITH PLACING PULSE OX ON FINGER. CURRENTLY 95% ON 8L NC. NOW IN AFIB WITH RATE 77. BED ALARM ON WITH CURTAIN AND DOOR OPEN.
--- NOTE | 2025-06-02 11:25 | NUR ---
DECREASED O2 TO 6 LPM.
--- NOTE | 2025-06-02 12:22 | NUR ---
PT UP TO BSC WITH PHYSICAL THERAPY - PT WEAK AND UNSTEADY, PIVOT TRANSFER WITH ASSIST LIFTING. CHAIR ALARM ON. WASH RAG PROVIDED FOR PT TO WASH FACE, ASSISTED WITH HAIR BRUSH. NEW GOWN PLACED. OSTOMY EMPTIED FOR 150ML OF GREEN BILE LIQUID STOOL. PT IN GOOD SPIRITS WITH FAMILY IN ROOM, DROWSY.
--- NOTE | 2025-06-02 13:19 | NUR ---
PT RESTING IN CHAIR ASLEEP, DR. MUSTAFA IN ROOM TO ROUND. PT WAKES EASILY BUT DROWSY. PT DENIES PAIN. PT CONTINUES TO REPORT LACK OF APPETITE. CHAIR ALARM ON.
[2025-06-02] MEDS ORDERED: FUROSEMIDE 20 MG/2 ML VIAL IV SCH (14:46)
--- NOTE | 2025-06-02 14:47 | NUR ---
PT PROVIDED SIPS OF CLEAR ENSURE. PT CONTINUES TO REST UP IN CHAIR. AFIB RHYTHM WITH RATE OF 70'S WHILE ASLEEP. REMAINS ON 8L NC. CHAIR ALARM ON.
--- NOTE | 2025-06-02 16:38 | NUR ---
PT BACK TO BED WITH PIVOT TRANSFER 2 PERSON ASSIST. PT POSISTIONED TO LEFT SIDE PER REQUEST. BED ALARM ON.
--- NOTE | 2025-06-02 16:47 | NUR ---
PATIENT MOVED BACK TO BED ON 8 LPM AND WAS 77%. O2 TO 15 LPM TO RECOVER AND NOW BACK TO 8 LPM AND HOLDING AT 88%.
--- NOTE | 2025-06-02 19:45 | NUR ---
PATIENT RESTING IN BED TALKING WITH SITTER. RT IN ROOM. PATIENT TOLERATING 8L NC. VS STABLE.
--- NOTE | 2025-06-02 20:26 | NUR ---
2009 PATIENT REPORT SEVERE SOB AND ASKING FOR "MORE AIR" PATIENT DESATING ON 8L NC TO 65%; RR 30. TITRATED TO 15L NC AND OXY MASK AT 15L. PATIENT CONTINUES TO FEEL SOB. RT CALLED. PATIENT SLOWLY BEGINING TO IMPROVE. MD CONTACTED. CXR ORDERED; IMAGING CALLED. 2024 PATIENT CONTINUES TO BE HYPOXIC. RT IN ROOM TO SET UP VAPOTHERM. IMAGING ARRIVED FOR CXR.
--- NOTE | 2025-06-02 20:32 | NUR ---
PATIENT REPORTING ONGOING SOB AND IS RESTLESS. RR 26. Sp02 89% ON 25L 70% Fi02 PER VAPOTHERM. PATIENT HAS INSPIRTORY AND EXPIRTORY WHEEZING THOUGHOUT. PATIENT RECEIVED SCHEDULED NEBS AT 2000 PER RT.
--- NOTE | 2025-06-02 21:00 | NUR ---
DR. MELENDEZ IN TO SEE THE PATIENT. PATIENT IS LESS SOB ON VAPOTHERM AND Sp02 IS MAINTAINING 88-92% ON VAPOTHERM 25L 70% Fi02. PRN MORPHINE PROVIDED FOR SOB.
--- NOTE | 2025-06-02 21:30 | NUR ---
PATIENT APPEARS MORE RESTFUL. EYES CLOSED. BREATHING MILDLY LABORED BUT IMPROVED. TOLERATING VAPOTHERM. VS STABLE. SITTER AT BEDSIDE.
--- NOTE | 2025-06-02 22:15 | NUR ---
abx started per order. patient appears more restful. labored breathing improving. tolerating vapotherm.
[2025-06-02] MEDS ORDERED: FUROSEMIDE 20 MG/2 ML VIAL IV ONE (23:30)
[2025-06-03] VITALS (15 sets, daily range): BP systolic 87–129; BP diastolic 46–75
--- NOTE | 2025-06-03 00:30 | NUR ---
PATIENT REMAINS ON VAPOTHERM AND MAINTAINING Sp02 88-92%. LASIX GIVEN PER ORDER. PATIENT CONTINUES TO APPEAR RESTFUL; EYES CLOSED. VS STABLE. ALLOWED PATIENT TO REST. BED ALARM ACTIVE. CALL LIGHT IN REACH.
--- NOTE | 2025-06-03 01:30 | NUR ---
PATIENT AWAKE AND ASKED TO BE SAT UP. ASSISTED PATIENT TO REPOSITION. PATIENT IS AAOX3. PATIENT APPEARS TO HAVE CLEARED MENTALLY. PATIENT AWARE OF SURROUNDINGS AND SITUATION. CONCERNED FOR HER DISCHARGE PLAN. WHEN ASKED IF PATIENT IS SOB SHE STATED "NOT TOO BAD, JUST NORMAL FOR ME". PATIENT DENIED PAIN IN ABD. REPORTS BEING HUNGRY AND THIRST. WHEN GIVEN SIPS OF ENSURE AND BITE OF JELL-O PATIENT IS ONLY ABLE TO HAVE SMALL AMOUNT BEFORE SHE FEELS UNABLE TO HAVE MORE. PATIENT DENIED NAUSEA, JUST POOR APPETITE. PATIENT POSITIONED FOR COMFORT AND ENCOURAGED TO REST. CALL LIGHT IN REACH. BED ALARM ACTIVE.
--- NOTE | 2025-06-03 03:40 | NUR ---
PATIENT APPEARS RESTFUL. VS STABLE. ORTEGA DRAINING CLEAR YELLOW URINE. PATIENT HAS HAD ADEQUATE RESPONCE TO IV LASIX. ALLOWED PATIENT TO REST. CALL LIGHT IN REACH.
--- NOTE | 2025-06-03 06:00 | NUR ---
LABS DRAWN PER PROTOCOL. PATIENT ALERT; ORIENTED TO SURROUNDINGS AND SELF. PATIENT REPOSITIONED FOR COMFORT. PATIENT DENIED PAIN OR GI UPSET. CONTINUES TO HAVE POOR APPETITE. OFFERED TO GET PATIENT TO CHAIR; PATIENT DECLINED. PROVIDED FRESH ICE WATER. TOLERATING VAPOTHERM. DENIED OTHER NEEDS. CALL LIGHT IN REACH.
[2025-06-03 06:11] LABS: BASOPHILS 0.4 % (0.1-1.2); EOSINOPHILS 0 % (0.7-5.8); LYMPHOCYTES 1.3 % (19.3-51.7); MCH 31.0 PG (25.6-32.2); MCHC 33.3 g/dL (32.2-35.5); MCV 92.9 fL (79.4-94.8); MONOCYTES 2.1 % (4.7-12.5); NEUTROPHILS 95.7 % (34.0-71.1); RBC 3.39 M/uL (3.93-5.22)
[2025-06-03 06:30] LABS: ALT (SGPT) 37.0 U/L (14-59); AST (SGOT) 113.0 U/L (15-37); GLOMERULAR FILTRATION RATE,EST 52.0 mL/min (>60); PROTEIN, TOTAL 4.8 g/dL (6.4-8.2); UREA NITROGEN 17.0 mg/dL (7-18)
--- NOTE | 2025-06-03 07:46 | NUR ---
HFNC FLOW INCREASED TO 40 LPM AND FiO2 DECREASED TO 45%.
[2025-06-03] MEDS ORDERED: BUDESONIDE 0.5 MG/2 ML VIAL INH SCH (08:00)
[2025-06-03] MEDS ORDERED: POTASSIUM CHLORIDE 10 MEQ TABCR PO ONE (09:00)
[2025-06-03] MEDS ORDERED: MAGNESIUM SULFATE 2 GM/50 ML BAG IV ONE (09:00)
[2025-06-03] MEDS ORDERED: FAMOTIDINE 20 MG TAB PO SCH (09:00)
--- NOTE | 2025-06-03 09:48 | NUR ---
PT RESTING IN BED, WAKES EASILY FOR ASSESSMENT AND CARES. CALM AND COOPERATIVE, ORIENTED. PT ATE BITES OF BREAKFAST, MOST SINCE ADMIT, ENCOURAGING CLEAR ENSURES, NO DIFFICULTY SWALLOWING. PT DENIES PAIN. SP02 >88% ON CURRENT VAPO THERM SETTINGS. REPOSISTIONED IN BED. ORTEGA CATH DRAINING CLEAR YELLOW URINE. OSTOMY SITE WNL, GREEN/BROWN LIQUID STOOL EMPTIED.
[2025-06-03] MEDS ORDERED: FUROSEMIDE 40 MG/4 ML VIAL ONE (10:34)
[2025-06-03] MEDS ORDERED: FUROSEMIDE 40 MG/4 ML VIAL IV SCH (10:45)
--- NOTE | 2025-06-03 11:49 | NUR ---
PT RESTING IN BED AWAKE WITH HOB ELVATED VISITING WITH FAMILY. MORE ALERT THIS AM. PT IN GOOD SPIRITS. VAPOTHERM TUBING BOTHERING PTS EARS AND NECK, PT TAKING IT OFF INTERMITANTLY. REMAINS IN SINUS RHYTHM, MAPS >65.
--- NOTE | 2025-06-03 14:52 | NUR ---
PT RESTING IN BED VISITING WITH GRANDDAUGHTER - CALM AND IN GOOD SPIRITS. ORTEGA DRAINING DILUTE URINE WITHOUT DIFFICULTY. PT EXCITED FOR [facility] MASHED POTATOES. VS STABLE ON MONITOR. PT DENIES PAIN OR COMPLAINTS AT THIS TIME.
--- NOTE | 2025-06-03 16:07 | EKG ---
[facility] [address] [facility] [place] [address] Signed Normal sinus rhythm Normal ECG When compared with ECG of 30-MAY-2025 09:20, Questionable change in QRS axis Nonspecific T wave abnormality now evident in Inferior leads Confirmed by Acosta Melendez MD () on 06/03/2025 4:07:06 PM Electronically Signed By: ACOSTA MELENDEZ MD 06/03/25 1607 PATIENT NAME: AMELIA LEE Electrocardiogram DATE OF : 36 PHYSICIAN: ACOSTA MELENDEZ MD REPORT #: [id number] REPORT IS CONFIDENTIAL AND NOT TO BE RELEASED WITHOUT AUTHORIZATION
--- NOTE | 2025-06-03 16:11 | EKG ---
[facility] [address] [facility] [place] [address] Signed Atrial fibrillation with rapid ventricular response Abnormal QRS-T angle, consider primary T wave abnormality Abnormal ECG When compared with ECG of 01-JUN-2025 10:15, Atrial fibrillation has replaced Sinus rhythm Vent. rate has increased BY 52 BPM Nonspecific T wave abnormality no longer evident in Anterior leads Confirmed by Acosta Melendez MD () on 06/03/2025 4:10:48 PM Electronically Signed By: ACOSTA MELENDEZ MD 06/03/25 1611 PATIENT NAME: AMELIA LEE Electrocardiogram DATE OF : 36 PHYSICIAN: ACOSTA MELENDEZ MD REPORT #: [id number] REPORT IS CONFIDENTIAL AND NOT TO BE RELEASED WITHOUT AUTHORIZATION
--- NOTE | 2025-06-03 19:37 | NUR ---
AMELIA REMAINS ON A VAPOTHERM 40L, 50% FIO2.
--- NOTE | 2025-06-03 20:00 | NUR ---
PATIENT SITTING UP IN BED. TOLERATING VAPOTHERM. EATING HER DINNER LEFTOVERS. PATIENT DENIED NEEDS. CALL LIGHT IN REACH.
--- NOTE | 2025-06-03 22:30 | NUR ---
PATIENT PROVIDED MEDS PER ORDER. PATIENT IS ALERT AND ORIENTED TO SELF AND SURROUNDINGS. TOLERATING VAPOTHERM. DENIED FEELING SOB. LUNG SOUNDS ARE COARSE AND DIM. ABD IS SOFT. DRESSING INTACT. BROWN LIQUID STOOL NOTED IN COLOSTOMY BAG. STOMA IS PINK AND WNL. ORTEGA CARE DONE. URINE OUTPUT IS QS AND CLEAR YELLOW. CENTRAL LINE FLUSHES AND RETURNS BLOOD IN DISTAL AND MEDIAL PORTS. PROXIMAL PORT DOES NOT. IV ABX STARTED PER ORDER. LIGHTS DIMMED. PATIENT DENIED OTHER NEEDS. CALL LIGHT IN REACH. BED ALARM ACTIVE.
[2025-06-04] VITALS (12 sets, daily range): BP systolic 121–140; BP diastolic 54–82
--- NOTE | 2025-06-04 | NUR ---
PATIENT RESTING IN BED. EYES CLOSED. VS STABLE. CALL LIGHT IN REACH. BED ALARM ACTIVE.
--- NOTE | 2025-06-04 02:20 | NUR ---
PATIENT DENIED NEEDS. DENIED PAIN OR GI UPSET. TOLERATING VAPOTHERM. ORTEGA DRAINING FREELY. ALLOWED PATIENT TO REST. CALL LIGHT IN REACH. BED ALARM ACTIVE.
--- NOTE | 2025-06-04 04:15 | NUR ---
PATIENT RESTING IN BED. REPORTS BEING COLD; COVERED PATIENT WITH HER OWN BLANKET. PATIENT TOLERATING VAPOTHERM. VS STABLE. PATIENT DENIED NEEDS OR CONCERNS. CALL LIGHT IN REACH.
[2025-06-04 06:38] LABS: BASOPHILS 0.2 % (0.1-1.2); EOSINOPHILS 0 % (0.7-5.8); LYMPHOCYTES 2.6 % (19.3-51.7); MCH 31.5 PG (25.6-32.2); MCHC 34.6 g/dL (32.2-35.5); MCV 91.0 fL (79.4-94.8); MONOCYTES 6.8 % (4.7-12.5); NEUTROPHILS 89.2 % (34.0-71.1); RBC 3.11 M/uL (3.93-5.22)
--- NOTE | 2025-06-04 06:38 | NUR ---
labs drawn from central line and sent to lab. scheduled meds provided. pt states no other needs at this time. call light in reach.
[2025-06-04 06:55] LABS: ALT (SGPT) 36.0 U/L (14-59); AST (SGOT) 87.0 U/L (15-37); GLOMERULAR FILTRATION RATE,EST 49.0 mL/min (>60); PROTEIN, TOTAL 4.4 g/dL (6.4-8.2); UREA NITROGEN 21.0 mg/dL (7-18)
[2025-06-04] MEDS ORDERED: POTASSIUM CHLORIDE 40 MEQ,LIDOCAINE HCL 1% 40 MG in DEXTROSE 5% 250 ML IV ONE (07:00)
[2025-06-04] MEDS ORDERED: MAGNESIUM SULFATE 2 GM/50 ML BAG IV ONE (07:45)
--- NOTE | 2025-06-04 08:30 | NUR ---
AM ASSESSMENT COMPLETE - PT RESTING IN BED AWAKE AND ALERT. REPOSISTIONED UP IN BED FOR BREAKFAST. OSTOMY SITE WNL, GREEN/BILE STOOL EMPTIED. MIDLINE INC C/D/I. PT HAS FAMILY AT BEDSIDE, ALL QUESTIONS ANSWERED. ORTEGA IS DRAINING CLEAR PALE YELLOW URINE, ORTEGA CARE COMPLETE. PT STATES VAPOTHERM IS UNCOMFORTABLE ON EARS AND NECK, PRESSURE SEEMS TO DISRUPT BREATHING PATTERN WHILE EATING. WILL CONSIDER REGULAR HIGH FLOW NC TODAY. CENTRAL LINE ALSO TO BE CONSIDERED FOR DC, PT HAS BEEN OFF VASOPRESSORS FOR 2 DAYS.
[2025-06-04] MEDS ORDERED: FUROSEMIDE 40 MG/4 ML VIAL IV SCH (09:00)
--- NOTE | 2025-06-04 09:35 | NUR ---
SPEECH EVAL IN PROGRESS IN ROOM
--- NOTE | 2025-06-04 10:26 | NUR ---
PT NOT AVAILABLE FOR VISIT. PROVIDED PRAYER.
--- NOTE | 2025-06-04 10:42 | NUR ---
PT RESTING IN BED AFTER BREAKFAST FAMILY STILL AT BEDSIDE. APPETITE IS IMPROVING BUT STILL ONLY BITES AT MEAL TIME. BP STABLE, REMAINS IN SINUS ARYTHMIA. CM AT BEDSIDE TO DISCUSS DC WITH FAMILY. RT CALLED TO DISCUSS 02 REQUIREMENTS.
--- NOTE | 2025-06-04 11:30 | NUR ---
INTO SEE PATIENT AND DAUGHTERS. PATIENT RESTING IN BED. WBT UPDATED ON PATIENT. PATIENT WANTED A POLST FORM COMPLETED. DISCUSSED WHAT HER WISHES WERE. SHE WOULD LIKE TO BE A FULL CODE. DAUGHTERS SHAILESH AND GERMÁN PRESENT DURING THIS CONVERSATION. NO FUTHER CM NEEDS AT THIS TIME.
--- NOTE | 2025-06-04 12:29 | NUR ---
PT BACK TO BED AFTER BEING IN CHAIR FOR APPROX 45 MINS. ATTEMPT TO EDUCATE PT ON IMPORTANCE FOR LUNGS TO STAY UPRIGHT FOR LONGER PERIOD OF TIME, MOBILIZING FLUID. PT IS NOT AGREEABLE TO THIS, REFUSES TO STAY IN CHAIR. PT MAX ASSIST PIVOT TRANSFER BACK TO BED WITH PHYSICAL THERAPIST. LUNCH TRAY POSISTIONED IN FRONT. FAMILY AT BEDSIDE ENCOURAGING ORAL INTAKE, PT UNINTERESTED. VAPOTHERM AT 30L, 60% FI02 WITH STABLE SP02.
--- NOTE | 2025-06-04 13:44 | NUR ---
RN RESTING IN BED IN ROOM VISITING WITH FAMILY - PT PROVIDED EDUCATION ON OSTOMY AND EMPTYING OF BAG. EDEMA IN HIPS AND THIGHS REMAINS 2+, ORTEGA DRAINING CLEAR DILUTE URINE.
--- NOTE | 2025-06-04 15:45 | NUR ---
RN ROUNDING ON PT - RESTING IN BED, QUIET BUT AWAKE. ATTEMPT TO REPOSISTION, PT STATES SHE IS COMFORTABLE AND DOES NOT WISH TO MOVE. ADDITIONAL PILLOW PROVIDED FOR HEAD. CALL LIGHT IN REACH, DAUGHTER AT BEDSIDE.
--- NOTE | 2025-06-04 18:41 | NUR ---
PT REPOSISTIONED TO LEFT SIDE PER REQUEST, WARM BLANKET PROVIDED. CALL LIGHT IN REACH.
[2025-06-05] VITALS (11 sets, daily range): BP systolic 123–152; BP diastolic 58–97
--- NOTE | 2025-06-05 00:02 | NUR ---
OSTOMY EMPTY 150 MLS BROWN LIQUID STOOL, IT IS ALSO NOTED THAT PT HAS GAS ALSO. PT DENIES PAIN OR DISCOMFERT AT THIS TIME. PT WENT BACK TO SLEEP BEFORE KNITTING SUPERVISOR COULD LEAVE THE ROOM.
--- NOTE | 2025-06-05 01:39 | NUR ---
PT AWAKEN AND SPO2 DECREASED 72% RT NOTIFIED O2 INCREASED TO 65% 30L'S SPO2 INCREASED TO 92%. pT IS VERY CONFUSED AT THIS TIMES. eXPLAINED WHERE SHE IS AND HOW SHE GOT HERE. BED ALARM ON AND PT REPOSITIONED AT THIS TIME.
--- NOTE | 2025-06-05 03:55 | NUR ---
COULD HEAR PT TALKING ON PHONE FROM NURSES STATION, OFFSET PRESS ASSISTANT WENT INTO HER ROOM AND PT WAS TALKING ON PERSONAL CELL PHONE TO HER DAUGHTER. YOU CAN HEAR HER DAUGHTER WANTING TO KNOW IF PT WAS OKAY. OFFSET PRESS ASSISTANT EXPLAINED WHAT TIME IT WAS AND PT HUNG UP ON HER DAUGHTER. PT IS CONFUSSED OF THE EVENTS ANS WHRE SHE IS. BUT WHEN YOU REDIREDT HER SHE FEELS SHE CAN'T GO HOME YET.
[2025-06-05 05:21] LABS: BASOPHILS 0.3 % (0.1-1.2); EOSINOPHILS 0 % (0.7-5.8); LYMPHOCYTES 4.3 % (19.3-51.7); MCH 30.9 PG (25.6-32.2); MCHC 33.9 g/dL (32.2-35.5); MCV 91.2 fL (79.4-94.8); MONOCYTES 9.0 % (4.7-12.5); NEUTROPHILS 85.2 % (34.0-71.1); RBC 3.17 M/uL (3.93-5.22)
[2025-06-05 05:39] LABS: ALT (SGPT) 38.0 U/L (14-59); AST (SGOT) 83.0 U/L (15-37); GLOMERULAR FILTRATION RATE,EST 49.0 mL/min (>60); PROTEIN, TOTAL 4.3 g/dL (6.4-8.2); UREA NITROGEN 22.0 mg/dL (7-18)
--- NOTE | 2025-06-05 06:34 | NUR ---
COMPLETED I&O'S OSTOMY DRANING BROWN TO GREEN IN COLOR STOOLS. PT DID ALLOW WINDOW UNIT AIR CONDITIONING MECHANIC TO THROW AWAY HER [employer] THIS MORNING, THEN WANTED TO KNOW WHEN BREAKFEST CAME. EXPLAINED THAT AND ASKED IF SHE WANTED A SNACK? nO STATES THE PT.
[2025-06-05] MEDS ORDERED: BUDESONIDE 0.5 MG/2 ML VIAL INH SCH (08:00)
--- NOTE | 2025-06-05 08:32 | NUR ---
PT REPOSISTIONED UP IN BED AFTER EMPTYING OSTOMY BAG. PT ALERT AND POSISTIONED FOR BREAKFAST. WET PRODUCTIVE COUGH OF HENRIQUEZ THICK SPUTUM NOTED. FLUTTER VALVE USED AND ENCOURAGED. REMAINS ON VAPOTHERM NEEDING INCREASE IN FI02. ORTEGA DRAINING DILUTE CLEAR URINE - LASIX DIURESIS CONTINUING.
[2025-06-05] MEDS ORDERED: POTASSIUM CHLORIDE 40 MEQ,LIDOCAINE HCL 1% 40 MG in DEXTROSE 5% 250 ML IV ONE (09:30)
[2025-06-05] MEDS ORDERED: MAGNESIUM SULFATE 2 GM/50 ML BAG IV ONE (09:30)
--- NOTE | 2025-06-05 09:45 | NUR ---
PT TOOK MINIMAL BITES OF BREAKFAST, DENIES NAUSEA OR PAIN, UNINTERESTED IN FOODS IN GENERAL. CENTRAL LINE LUMENS FLUSHED WITH GOOD BLOOD RETURN. HOME DOSE LISINOPRIL AND ATENOLOL DOSE HELD AT THIS TIME UNTIL CONSULT WITH MD Harman/Bryson VALLE IN 40'S-50'S ON MONITOR. BP STABLE. CM AND DAUGHTERS AT BEDSIDE DISCUSSING POST DC PLAN.
--- NOTE | 2025-06-05 11:35 | NUR ---
PT REFUSING TO PARTICIPATE IN PT AND OT THERAPY. SEVERAL ATTEMPTS MADE.
--- NOTE | 2025-06-05 11:43 | NUR ---
PT NOT AVAILABLE FOR VISIT. PROVIDED PRAYER.
--- NOTE | 2025-06-05 12:14 | NUR ---
PT SITTING UP IN BED, FAMILY MEMBER AT BEDSIDE. SET UP LUNCH TRAY FOR PT. DENIES FURTHER NEEDS
--- NOTE | 2025-06-05 13:30 | NUR ---
MD AND SURGEON IN ROOM ROUNDING - DAUGHTER PRESENT. PT NOW ON REGULAR DIET, ENCOURAGED TO PARTICIPATE IN THERAPY.
--- NOTE | 2025-06-05 14:57 | PATH ---
[facility] [address] [place], [place] [address] Signed SPECIMEN(S): A PORTION SIGMOID COLON SPECIMEN SOURCE: A. PORTION SIGMOID COLON CLINICAL HISTORY: Rectal abscess/mass FINAL PATHOLOGIC DIAGNOSIS: Sigmoid colon, partial resection: - Marked ischemic colitis with edematous changes and abscess formation. - Negative for dysplasia or malignancy. - Colitis present at lateral margins. IRG MICROSCOPIC EXAMINATION: Histologic sections of all submitted blocks (or IHC as applicable) are digitally scanned and examined. These findings, together with the gross examination, support the pathologic diagnosis. GROSS DESCRIPTION: The specimen, labeled and designated "Julio Cesar, portion sigmoid colon," is received in formalin and consists of an unoriented vanegas and yellow mucosal pouch that measures 3.8 cm in length and 3.4 cm in diameter. One end of the specimen is received open and the opposite end is closed. The mucosal resection margins are differentially inked as follows: Black-opened and blue-stapled. The serosal surface is remarkable for scant, adherent to yellow fibroadipose tissue. The specimen is opened to show a 2.8 x 1.9 x 0.5 cm slightly raised nodule, 0.4 cm from the black inked resection margin and 1.5 cm from the blue inked resection margin. The cut surfaces show mild edema. The mucosa is smooth underlying the mass without ulceration. The remaining mucosa is vanegas-brown and velvety. No additional mucosal/luminal lesions are identified. Medicare Sales Representative sections are submitted (the nodule submitted entirely) as follows: Cassette Summary: (A1-A4) nodule perpendicular to each margin, entirely (A5-A6) additional perpendicular sections of mucosa NL (under the direct supervision of a pathologist) The Gross Description was prepared using a voice recognition system. The report PATIENT NAME: AMELIA LEE PATHOLOGY DATE OF : 36 REPORT #: [id number] PHYSICIAN: MEGHNA FITCH PCP: RAMONITA MCGUIRE MD REPORT IS CONFIDENTIAL AND NOT TO BE RELEASED WITHOUT AUTHORIZATION [facility] [address] [place], [place] [address] Signed was reviewed for accuracy; however, sound-alike word errors, addition and/or deletions may occur. If there is any question about this report, please contact Client Services. ADDITIONAL NOTES: Immunohistochemical and/or in situ hybridization studies if performed in this case included appropriate positive controls that reacted as expected. This test was developed and its performance characteristics determined by [employer] It has not been cleared or approved by the U.S. Food and Drug Administration. The FDA has determined that such clearance or approval is not necessary. This test is used for clinical purposes. It should not be regarded as investigational or for research. [employer] is certified under the Clinical Laboratory Improvement Amendments of 1988 (CLIA) as qualified to perform high complexity clinical laboratory testing. PERFORMING LABORATORY: Technical preparation was performed by [facility], [address] [place] [id number] (CLIA#: [id number]). Professional interpretation was performed by [facility] � [facility], [address] [facility], [address] Floor Room [address] [place] [address] (CLIA#: [id number]). Diagnostician: Raman Diaz MD Pathologist Electronically Signed 06/05/2025 Copies: ~ PATIENT NAME: AMELIA LEE PATHOLOGY DATE OF : 36 REPORT #: [id number] PHYSICIAN: MEGHNA PATHOLOGY PCP: RAMONITA MCGUIRE MD REPORT IS CONFIDENTIAL AND NOT TO BE RELEASED WITHOUT AUTHORIZATION
[2025-06-05] MEDS ORDERED: POTASSIUM CHLORIDE 10 MEQ TABCR PO SCH (15:00)
--- NOTE | 2025-06-05 15:28 | NUR ---
PT UP IN CHAIR VISITING WITH DAUGHTER, DOES NOT EXPRESS DISCOMFORT. DINNER ORDER CALLED TO DIETARY.
--- NOTE | 2025-06-05 15:51 | NUR ---
Spoke with daughter Charity and Kaitlyn. Pt resting in bed. Pt does not have a POA. Adavance directive taken to the room as daughter would like to be medical receptionist biller. They will complete. Daughter. Charity is leaving for [place] today. Daughter, Kaitlyn, will be staying here. Pt agreeable to go to a SNF on [place] and then onto hospice eventually. Pt wants to return to her home at [facility] eventually.
--- NOTE | 2025-06-05 18:19 | NUR ---
PT BACK TO BED USING PIVOT TRANSFER FROM CHAIR AFTER DINNER. PT ONLY ATE FEW BITES OF CUSTOM ORDER DINNER.
--- NOTE | 2025-06-05 18:51 | NUR ---
CENTRAL LINE DC'D PER PROTOCOL, PT TOLERATED WITHOUT DIFFICULTY. LAYING IN MOSTLY SUPINE POSISTION WITH CALL LIGHT IN HAND AND LIGHTS TURNED OUT PER REQUEST. BED ALARM ON.
--- NOTE | 2025-06-05 20:00 | NUR ---
PT AWAKE AND WANTING ALL THE LIGHTS OFF IN HER, " I WANT TO GO TO SLEEP. IT IS TIME" ASSESSMENT COMPLETED AND LIGHTS OFF, BED ALARM ON AND CALL LIGHT WITHIN REACH.
--- NOTE | 2025-06-05 21:00 | NUR ---
ORAL MEDICATIONS GIVEN AT HTIS TIME AND PT TURNED TO LT SIDE PILLOW BEHIND HER BACK.
[2025-06-06] VITALS (17 sets, daily range): BP systolic 106–160; BP diastolic 51–89
--- NOTE | 2025-06-06 00:10 | NUR ---
PT AWAKE WHEN CYBER INCIDENT HANDLER ENTERED THE ROOM, PT DENIES PAIN AT THIS TIME BUT IS CONCERNED WITH ALL THE LINES ON HER AT THIS TIME. OSTOMY DRAINING BROWN AND GREEN DRAINAGE. ORTEGA DRAINING YELLOW IN COLOR URINE.
--- NOTE | 2025-06-06 03:01 | NUR ---
pt desat into the low 80S. repositioned, equipment checked, o2 turned up to 30L/90% from 30L/65% to get spo2 to 87%. rt called for assistance.
--- NOTE | 2025-06-06 06:00 | NUR ---
PT RESTING IN BED, EYES CLOSED. IV FLUIDS INFUSING PER ORDER. VAPOTHERM @ 30L/80% SPO2 91%. CALL LIGHT IN REACH.
[2025-06-06 07:08] LABS: BASOPHILS 0.2 % (0.1-1.2); EOSINOPHILS 0.1 % (0.7-5.8); LYMPHOCYTES 5.1 % (19.3-51.7); MCH 31.3 PG (25.6-32.2); MCHC 34.4 g/dL (32.2-35.5); MCV 91.2 fL (79.4-94.8); MONOCYTES 8.1 % (4.7-12.5); NEUTROPHILS 85.6 % (34.0-71.1); RBC 3.51 M/uL (3.93-5.22)
[2025-06-06 07:17] LABS: ALT (SGPT) 41.0 U/L (14-59); AST (SGOT) 69.0 U/L (15-37); GLOMERULAR FILTRATION RATE,EST 50.0 mL/min (>60); PROTEIN, TOTAL 4.8 g/dL (6.4-8.2); UREA NITROGEN 21.0 mg/dL (7-18)
--- NOTE | 2025-06-06 07:20 | NUR ---
REPORT FROM CT MOSCOSO, PT ON VAPOTHERM - RT INCREASING NOW 40L 50%, PT HAS EYES CLOSED RESP RATE 16 IN BED WITH CALL LIGHT.
[2025-06-06] MEDS ORDERED: MAGNESIUM CHLORIDE 64 MG TABCR PO ONE (08:00)
[2025-06-06] MEDS ORDERED: POTASSIUM CHLORIDE 10 MEQ TABCR PO ONE (08:00)
--- NOTE | 2025-06-06 08:38 | NUR ---
SPO2 SUSTAINED IN 84%, PRIMARY NURSE NOTIFIED, LIDIA RT CALLED PT OXYGEN INCREASED TO 60%. PT STATES SHE FEELS HER WORK OF BREATHING HAS INCREASED. NO FURTHER NEEDS AT THIS TIME. CALL LIGHT IN REACH
--- NOTE | 2025-06-06 09:01 | NUR ---
PT ASKING NURSE TO "JUST LET ME GO" i DON'T WANT TO DO THIS ANYMORE. RN LET PT KNOW SHE NEEDS TO HAVE A DISCUSSION WITH HER DR AND FAMILY ABOUT HER WISHES - PT DISLIKES THE OXYGEN, SHE IS AT 40L AND 70% OXYGEN TO HAVE SATS AT 83%, SOB AND REFUSING TO EAT OR DRINK. HOB UP AND NOW REQUESTING TO LEAN BACK. FAMILY IN TO ROOM.
--- NOTE | 2025-06-06 09:17 | NUR ---
pt daughter here - she gave me an oha advance directive, call to dc transit planner to come visit with pt and family about new info - previous polst on chart from 06/04 and 06/05. carpenter draining well after 40 mg of lasix iv, pt encouraged to talk to daughter about her wishes - pt tells her she wants to stop and she is not gonna make it home and she wants the oxygen off - daughter tells her if she does what she is supposed to do she will make it home, she needs to eat, do pt and follow instructions. RN left that conversation to family and dr/dc transit planner to futher discuss plan of care. rn consulted damaso and kiara about increasing oxygen needs and sob of pt with no exertion - vapo therm adjusted multiple times by RT - sats now 93%.
--- NOTE | 2025-06-06 09:42 | NUR ---
pt family notes that pt is uncomfortable with carpenter - it is draining wnl, tube manipulated and draining well - educated that carpenter sometimes feels pressure and is working fine, tank charger marcelle in room with rn to observe.
--- NOTE | 2025-06-06 09:51 | NUR ---
updated dr mccartney on urine and output, also on new papers from family on advance directives. plan for ct angio this am.
--- NOTE | 2025-06-06 09:58 | NUR ---
AND RN IN ROOM WITH PT AND DAUGHTER TO EDUCATE ABOUT CT ANGIO AND LASIX INCREASE.
[2025-06-06] MEDS ORDERED: FUROSEMIDE 20 MG/2 ML VIAL IV ONE (10:00)
--- NOTE | 2025-06-06 10:15 | NUR ---
IV SL - PT MOVED TO XRAY VIA BED WITH RT LIDIA AND AMELIA XRAY STAFF AND THIS RN, PT MOVED TO CT TABLE AND LINENS CHANGED - NOTED THAT PT HAD MUCUS STOOL FROM RECTUM INSPITE OF COLOSTOMY. PT SKIN INTACT - WNL. CLEANED AND MOVED BACK TO BED AFTER SCAN. PT TO ROOM 127 AND AGAIN TURNED AND SKIN CHECKED WITH DUMP TRUCK DRIVER KERRI AND ATTENDS PLACED AFTER ORTEGA CARE. NEW GOWN AND LINENS. NEW WATER BOTTLE PER PT FAMILY REQUEST THAT WATER TASTES FUNNY. PT RESTING IN BED - R FA IV RE DRESSED, CALL LIGHT IN REACH.
--- NOTE | 2025-06-06 10:44 | NUR ---
RT ASSISTED WITH TRANSPORT TO AND FROM CT.
--- NOTE | 2025-06-06 11:20 | NUR ---
Spoke with Mackenzie and her daughter Ava. Pt denies needs. She remains on vapo therm. Daughter returned the Advance Directive I gave them yesterday. Form is completed and notorized. I will send to medical records to be scanned. Pt does not want intubation or CPR. Pt remains agreeable to go to a SNF when she is ready for DC. Dc date is not clear at this time.
--- NOTE | 2025-06-06 11:48 | NUR ---
emptied carpenter - pt denies needs/pain, call light in reach. dtg in room.
--- NOTE | 2025-06-06 12:04 | NUR ---
in room with rt kiara - hfnc at 15L for sats 96% after lasix and urine out of over 2,000 ml.
[2025-06-06] MEDS ORDERED: FUROSEMIDE 100 MG/10 ML VIAL IV SCH (13:00)
--- NOTE | 2025-06-06 13:37 | NUR ---
DECREASED O2 TO 8 LPM.
--- NOTE | 2025-06-06 14:46 | NUR ---
ABX STARTED LEFT ARM SITE - PT EYES CLOSED RESP RATE 23, CALL LIGHT IN REACH.
--- NOTE | 2025-06-06 15:22 | NUR ---
PT WORKING WITH PT AND RESP WITH THIS RN IN ROOM. PT IS YELLING THAT SHE DOES NOT WANT TO DO ANY, SHE WANTS TO LAY IN BED - REFUSES TO SIT IN CHAIR. ENC. TO PARTICIPATE. YELLS THAT SHE JUST WANTS TO BE LEFT ALONE AND SHE DOESN'T CARE IF SHE GOES HOME- JUST LET ME BE. PT REPOSITIONED BACK IN BED. CALL LIGHT IN REACH, WATER AT SIDE.
--- NOTE | 2025-06-06 16:18 | NUR ---
PER DAUGHTERS REQUEST, BREAKFAST ORDER CALLED TO DIETARY OF SCRAMBLED EGGS, 1 PIECE OF WHITE TOAST, AND 1 PANCAKE. NO SPECIFICATION OF DRINK REPORTED.
[2025-06-06 16:38] LABS: GLOMERULAR FILTRATION RATE,EST 45.0 mL/min (>60); UREA NITROGEN 21.0 mg/dL (7-18)
--- NOTE | 2025-06-06 16:58 | NUR ---
pt requested to go from chair to bed, pt unsteady on feet with fww, assisted to go back to bed. ostomy left side wnl, midline abd insc. with alicia well approximated, pt edema improved - carpenter emptied 1000 ml clear yellow urine. pt now on 6L nc and sats are 93% resting in bed, call light in reach.
--- NOTE | 2025-06-06 19:18 | NUR ---
report to police shift commander rn, pt resting in bed visiting with multiple family in room. call light in reach, hr 73, o2 93% 6L nc. resp rate 21.
--- NOTE | 2025-06-06 19:30 | NUR ---
SHIFT REPORT RECEIVED. PATIENT RESTING IN BED; VISITING WITH FAMILY.
--- NOTE | 2025-06-06 20:54 | NUR ---
PATIENT PROVIDED MEDS PER ORDER. PATIENT REQUESTING "SOMETHING TO MAKE HER SLEEP". SCHEDULED SEROQUEL GIVEN. PATIENT TOLERATING 6L NC. LUNG SOUNDS ARE CLEAR AND DIM IN UPPER LOBES; CRACKLES NOTED IN NIELS BASES. PATIENT DENIED FEELING SOB. REPORTS DISCOMFORT FROM THE ORTEGA. ORTEGA CARE DONE AND FLUSHED WITH NS; DRAINING FREELY. ABD IS SOFT; NONTENDER. COLOSTOMY NOTED TO BE FUNCTIONAL WITH LIQUID BROWN STOOL AND STOMA APPEARS WNL. MIDLINE INCISION IS WELL APPROXIMATED. PATIENT DENIED ANY OTHER NEEDS. WARM BLANKET PROVIDED. CALL LIGHT IN REACH. LIGHTS AND TV OFF. BED ALARM ACTIVE.
--- NOTE | 2025-06-06 22:30 | NUR ---
ABX STARTED PER ORDER; IV SITE WNL. PATIENT APPEARS TO BE SLEEPING SOUNDLY. VS STABLE. Sp02 96% ON 6L NC. TITRATED TO 4L NC. CALL LIGHT IN REACH.
[2025-06-07] VITALS (10 sets, daily range): BP systolic 100–146; BP diastolic 47–77
--- NOTE | 2025-06-07 00:30 | NUR ---
PATIENT APPEARS RESTFUL IN BED. VS STABLE. CALL LIGHT IN REACH.
--- NOTE | 2025-06-07 02:30 | NUR ---
PATIENT APPEARS COMOFRTABLE IN BED. TOLERATING 4L NC. VS STABLE. ALLOWED PATIENT TO REST. CALL LIGHT IN REACH.
--- NOTE | 2025-06-07 05:00 | NUR ---
PATIENT DENIED ANY NEEDS OR CONCERNS. ORIENTED TO SELF AND SURROUNDINGS. VS STABLE. TOLERATING 4L NC. CALL LIGHT IN REACH.
[2025-06-07 05:27] LABS: BASOPHILS 0.2 % (0.1-1.2); EOSINOPHILS 0.1 % (0.7-5.8); LYMPHOCYTES 4.8 % (19.3-51.7); MCH 30.8 PG (25.6-32.2); MCHC 33.6 g/dL (32.2-35.5); MCV 91.5 fL (79.4-94.8); MONOCYTES 5.5 % (4.7-12.5); NEUTROPHILS 88.0 % (34.0-71.1); RBC 3.54 M/uL (3.93-5.22)
[2025-06-07 05:44] LABS: SMEAR REVIEW BLOOD SEE COMMENTS
[2025-06-07 05:45] LABS: ALT (SGPT) 34.0 U/L (14-59); AST (SGOT) 46.0 U/L (15-37); GLOMERULAR FILTRATION RATE,EST 44.0 mL/min (>60); PROTEIN, TOTAL 4.9 g/dL (6.4-8.2); UREA NITROGEN 25.0 mg/dL (7-18)
--- NOTE | 2025-06-07 06:30 | NUR ---
iv abx started per order. patient resting in bed. denies any needs. reports sleeping "like a baby". call light in reach.
--- NOTE | 2025-06-07 09:20 | NUR ---
pt up in chair, dr taylor here, colostomy wnl. midline alicia well approximated and wnl. pt visiting with family and call light in reach.
--- NOTE | 2025-06-07 09:30 | NUR ---
pt inc of urine in chair- up and amb fww with rn to shower. rn full assist from shower chair for hair wash, renetta care, then pt up to sink for oral care and hair brush with OT. pt amb back to chair, 96% oxygen and call light in reach.
--- NOTE | 2025-06-07 11:05 | NUR ---
In and spoke with pt and her daughter. Plan is for pt to dc to [place] tomorrow. Daughter prefers pt to go by [facility]. Van scheduled. clinical notes, Advanced Directive, POLST form faxed to Sd.
--- NOTE | 2025-06-07 11:29 | NUR ---
PT ASSISTED TO BR TO VOID 300 ML BACK TO CHAIR WITH ALARM AND CALL LIGHT.
--- NOTE | 2025-06-07 13:27 | NUR ---
pt amb w/fww from chair around bed and sat in bed with assist. tollerated well. carpenter leaking when she was in chair - rn talked to dr wilson dimas to remove carpenter. call light in reach.
--- NOTE | 2025-06-07 14:11 | NUR ---
pt working with therapy - dc carpenter intact. attends on. linen changed.
--- NOTE | 2025-06-07 14:42 | NUR ---
FEMALE PUREWICK PLACED IN CLEAN DRY ATTEND - PT WANTS TO NAP. TIRED FROM WALKING IN THE BRITO W/FWW DURING THERAPY. PT WEIGHT ON STAND SCALE RECORDED.
--- NOTE | 2025-06-07 19:48 | NUR ---
PATIENT LAYING IN BED. PATIENTS DENTURES WERE PLACED IN A CUP WITH A CLEANING TABLET. PATIENTS CALL LIGHT IS WITHIN REACH AND NO FURTHER NEEDS AT THIS TIME.
--- NOTE | 2025-06-07 20:45 | NUR ---
PATIENT ASSISTED WITH CLEANING HER DENTURES AND PLACED THEM BACK IN HER MOUTH. PATIENT PROVIDED SCHEDULED MEDS. VS STABLE. TOLERATING 4L NC. ENDIED FEELING SOB. PURE WIC IN PLACE; PATIENT HAS BEEN USING WELL. PATIENT DENIED OTHER NEEDS OR CONCERNS. CALL LIGHT IN REACH. BED ALARM ACTIVE.
--- NOTE | 2025-06-07 21:33 | NUR ---
PATIENT ASSISTED TO REPOSITION IN BED. PATIENT REPORTS BEING COMFORTABLE AND DENIED OTHER NEEDS. Sp02 84-85% ON 4L NC. TITRATED TO 6L. PATIENT REMAINED AT 85% FOR SEVERAL MINS. RT CALLED. PATIENT SWITCHED BACK TO HIGH FLOW NC BY RT.
--- NOTE | 2025-06-07 21:48 | NUR ---
PATIENT REPOSITIONED IN BED. PURE WIC ADJUSTED AND WORKING WELL. PATIENT Sp02 >88% ON HIGH FLOW NC.
--- NOTE | 2025-06-07 23:35 | NUR ---
PATIENT WOKE CONFUSED THINKING HER DAUGHTER WAS OUTSIDE THE WINDOW WAITING FOR HER. AFTER SEVERAL MINS OF REORIENTATING PATIENT SHE WAS ABLE TO RELAX BACK INTO BED. PATIENT REPOSITIONED. REPORTS GI UPSET WITH NAUSEA. PRN MEDS PROVIDED. CALL LIGHT IN REACH.
--- NOTE | 2025-06-08 02:00 | NUR ---
patient repositioned herself in bed and set off bed alarm. rn in room to reset alarm. patient reports that she wants to see the doctor about the plan for her leaving today. assured patient the doctor would see her later this morning.
--- NOTE | 2025-06-08 03:25 | NUR ---
PATIENT INCREASINGLY IRRITABLE AND CONFUSED. APPEARS PATIENT MAY BE CONFUSING DREAMS WITH REALITY BUT PATIENT IS CONCERNED ABOUT MISSING HER RIDE TO [facility] TODAY AND WHERE HER MEDICATIONS ARE. ATTEMPTS MADE TO REORIENT PATIENT RESULT IN PATIENT BEING UPSET AND TELLING RN TO LEAVE. PATIENT LAYING IN BED. NC IN PLACE. BED ALARM ACTIVE.
--- NOTE | 2025-06-08 04:37 | NUR ---
PATIENT REMAINS RESTLESS AND ANXIOUSLY WAITING FOR HER DAUGHTER TO COME TAKE HER TO THE LONG TERM. REMINDED PATIENT THAT THE MD HAD TO SEE HER AND DISCHARGE HER FIRST. PATIENT THEN REPORTED THAT HER STOMACH HURT; PATIENT IS IRRITABLE AND DOES NOT PROVIDE CLARIFICATION ON HER PAIN. PRN MEDS PROVIDED PER ORDER. PATIENT IS RESTING IN BED AND REDIRECTABLE BUT IS NOT HAPPY WITH STAFF. BED ALARM ACTIVE.
[2025-06-08 05:30] VITALS: BP 146/73
[2025-06-08 05:32] LABS: MCH 30.9 PG (25.6-32.2); MCHC 33.7 g/dL (32.2-35.5); MCV 91.5 fL (79.4-94.8); RBC 3.66 M/uL (3.93-5.22)
[2025-06-08 05:45] LABS: LYMPHOCYTES, MANUAL DIFF 4; MONOCYTES, MANUAL DIFF 3; NEUTROPHILS, MANUAL DIFF 93
--- NOTE | 2025-06-08 05:46 | NUR ---
PATIENT'S COLOSTOMY BAG LEAKED LARGE AMOUNT OF LIQUID STOOL. PATIENT CLEANED AND ALL LINEN CHANGED. PATIENT REFUSED TO GET UP TO THE RECLINER. PATIENT REPOSITIONED IN BED; HOB ELEVATED.
[2025-06-08 05:49] LABS: ALT (SGPT) 33.0 U/L (14-59); AST (SGOT) 46.0 U/L (15-37); GLOMERULAR FILTRATION RATE,EST 37.0 mL/min (>60); PROTEIN, TOTAL 5.4 g/dL (6.4-8.2); UREA NITROGEN 31.0 mg/dL (7-18)
--- NOTE | 2025-06-08 07:10 | NUR ---
PATIENT ATTEMPTING TO EXIT BED WITHOUT ASSIST. PATIENT REMINDED TO USE CALL LIGHT. PATIENT AMBULATED INTO THE BATHROOM WITH 4 WHEEL WALKER. PATIENT USES WALKER CORRECTLY. PATIENT SITTING UP IN RECLINER. CHAIR ALARM IN PLACE. CALL LIGHT IN LAP.
--- NOTE | 2025-06-08 07:28 | NUR ---
pt daughter here - pt confused up in chair call light in reach - report from night manager.
[2025-06-08 08:00] VITALS: BP 125/79
[2025-06-08] MEDS ORDERED: POTASSIUM CHLORIDE 10 MEQ TABCR PO ONE (08:00)
--- NOTE | 2025-06-08 08:00 | NUR ---
Notified by staff pt has had some medical changes and admit to [facility] has been cancelled. My coworker called and cancelled transport for this pt. I spoke with Dr. Vega and he will assess pt and pt may be able to dc this afternoon.
--- NOTE | 2025-06-08 08:02 | NUR ---
CALL TO DR CASTANO FOR PT STATUS UPDATE - HE HAS POSTPONED DC TO SNF - THIS RN CALLED [employer] DC [employer] HISTORY TEACHER AND DOCUMENT CONTROL ASSISTANT TO NOTIFY AND FAMILY/ PT IS AWARE. PT WAS ON NC 6L TO KEEP SATS ABOVE 88%. SITTING IN CHAIR.
--- NOTE | 2025-06-08 08:54 | NUR ---
in room with pt family and dr rachel and this rn, pt confused. scds on.
[2025-06-08] MEDS ORDERED: predniSONE 20 MG TAB PO SCH (09:00)
[2025-06-08] MEDS ORDERED: POTASSIUM CHLORIDE 40 MEQ,LIDOCAINE HCL 1% 40 MG in DEXTROSE 5% 250 ML IV ONE (09:00)
[2025-06-08] MEDS ORDERED: FUROSEMIDE 40 MG/4 ML VIAL IV SCH (09:00)
--- NOTE | 2025-06-08 09:38 | NUR ---
PT OFFERED BSC TO COLLECT URINE SAMPLE AND SHE STATED THAT SHE DID NOT NEED TO. UP IN CHAIR VISITING WITH FAMILY - IV KCL FUSING. CALL LIGHT IN REACH.
--- NOTE | 2025-06-08 10:00 | NUR ---
Spoke with Dr. Vega and pt now cleared to dc. I spoke with Sd at [facility] and pt may admit today. She can arrive as late as 4 pm. I will contact the van as this will be the deciding factor for the time this pt can dc.
--- NOTE | 2025-06-08 10:00 | NUR ---
IN PT ROOM TO ASSIST WITH BATHROOM. URINE COLLECTED AND SENT TO LAB. PT BACK IN BED, CALL LIGHT WITHIN REACH. PT FAMILY AQT BEDSIDE. PT EATING TWINKI, DENIES FURTHER NEEDS.
[2025-06-08 10:10] LABS: BLOOD/HGB, URINE MODERATE (Negative); KETONE, URINE NEGATIVE (Negative); LEUK ESTERASE, URINE TRACE (negative); NITRITE, URINE NEGATIVE (negative)
[2025-06-08 10:22] LABS: BACTERIA, URINE RARE /hpf (negative); CASTS, URINE NONE SEEN \\lpf; CHLORIDE, RANDOM URINE 127.0 mmol/L (NOT ESTABLISHED); CRYSTALS, URINE NONE SEEN (0-1+); EPITHELIAL CELLS, URINE SQUAMOUS 1+ /lpf (0-1+); SODIUM, RANDOM URINE 131.0 mmol/L (NOT ESTABLISHED)
[2025-06-08 10:23] LABS: REFLEX CULTURE, URINE Yes (No)
--- NOTE | 2025-06-08 10:40 | NUR ---
Spoke with the WC van. They needed to call me back. Pt scheduled for [facility] van transport at 3:30 to [place].
--- NOTE | 2025-06-08 10:48 | NUR ---
dr rachel called this rn about urine results - start po abx and po kcl with lasix plan for dc at 3:[address] asked rn to make f/u appt with pcp and gen surgery. pt resting in bed with family in room. call light in reach.
--- NOTE | 2025-06-08 10:58 | NUR ---
new f/u appt on Jun.15 at [address] [facility] [address] Kaufman
[2025-06-08] MEDS ORDERED: QUETIAPINE FUMA25 MG PO (11:15)
[2025-06-08] MEDS ORDERED: FAMOTIDINE20 MG PO (11:16)
[2025-06-08] MEDS ORDERED: LASIX40 MG PO (11:17)
[2025-06-08] MEDS ORDERED: CEFUROXIME500 MG PO (11:17)
[2025-06-08] MEDS ORDERED: PREDNISONE20 MG PO (11:30)
[2025-06-08] MEDS ORDERED: PREDNISONE10 MG PO (11:30)
[2025-06-08] MEDS ORDERED: PREDNISONE5 MG PO (11:30)
--- NOTE | 2025-06-08 11:39 | NUR ---
VISITED DURING SPIRITUAL CARE ROUNDS. PT APPEARED TO BE SLEEPING. DID NOT DISTURB. PROVIDED PRAYER.
--- NOTE | 2025-06-08 12:10 | NUR ---
Received written orders for SNF. Faxed orders, Pasrr, Advance Directive, POLST, DC summary, and notes to Sd.
[2025-06-08 12:26] VITALS: BP 147/66
--- NOTE | 2025-06-08 12:31 | NUR ---
pt sob with exertion from bed to bsc for 300 ml void. back to bed - declines lunch - encouraged pt to eat. hr 89 and o2 4l nc recovers to 86-88 at rest. call light in reach.
--- NOTE | 2025-06-08 13:45 | NUR ---
Received a call from [facility]. They have questions about some of the med orders. Orders taken to Dr. Vega and changes made. Orders initialled and faxed to [facility]. Orders to Medical records.
--- NOTE | 2025-06-08 14:10 | NUR ---
pt pulse ox 88% and hr 159's - rn in to pt room and placed 5 lead monitor. pt and daughter haveing discussion - pt upset. enc. to calm and relax, music turned on, pt hr very tachy on monitor 140-150. called ekg done.
--- NOTE | 2025-06-08 14:30 | NUR ---
dr arroyo - pt hr 145, denies pain or symptoms. review ekg. pt resting in bed with dtg at side talking to her and call light in reach.
[2025-06-08 14:34] VITALS: BP 107/81
--- NOTE | 2025-06-08 14:35 | NUR ---
see emar for prn - dr rachel advised to give now po and reviewed pt vitals at bedside with this rn.
[2025-06-08] MEDS ORDERED: LORazepam 2 MG/ML VIAL IV ONE (14:45)
[2025-06-08] MEDS ORDERED: METOPROLOL TARTRATE 5 MG/5 ML VIAL ONE (15:12)
[2025-06-08 15:15] VITALS: BP 135/78
--- NOTE | 2025-06-08 15:30 | NUR ---
dc to [facility] hr 80,at 1506, bp 135/[address] rachel to confirm dc plan. dc iv x2 after iv metoprolol see emar. previous hr 130's - 140. confirmed dc. pt void on bsc - denies pain or symptoms- daughter in room - pt forgetful. reminded while rn was dressing pt that her colostomy to left side is how she will stool - pt reminded again, site wnl. report called to abhinav at [facility]. cell phone, panel edge painter and all belongings returned to pt and her daughter. dc to lobby stable in her wc with her fww and blanket.
--- NOTE | 2025-06-08 18:41 | EKG ---
[facility] [address] [place], [place] [address] Signed Sinus tachycardia Nonspecific ST and T wave abnormality Abnormal ECG When compared with ECG of 01-JUN-2025 14:26, Sinus rhythm has replaced Atrial fibrillation Nonspecific T wave abnormality now evident in Inferior leads Confirmed by Bolivar Castano DO ([id number]) on 06/08/2025 6:41:16 PM Electronically Signed By: BOLIVAR CASTANO DO 06/08/25 184 PATIENT NAME: AMELIA LEE Electrocardiogram DATE OF : 36 PHYSICIAN: BOLIVAR CASTANO DO REPORT #: [id number] REPORT IS CONFIDENTIAL AND NOT TO BE RELEASED WITHOUT AUTHORIZATION
[2025-06-09 19:03] LABS: CREATININE,URINE - PER VOLUME 27 mg/dL (()); HOURS COLLECTED Random hr (()); URINE UREA NITROGEN - MG/DL 169 mg/dL (())
--- NOTE | 2025-06-10 13:51 | CONS ---
[facility] [address] [place], [place] [address] Signed DATE OF CONSULTATION: 06/02/2025 CONSULTING PHYSICIAN: An Mustafa. REQUESTING PHYSICIAN: Dr. Ramos. ISSUE: Recent operation with diverting colostomy for stercoral colitis and low pelvic abscess. HISTORY OF PRESENT ILLNESS: This 84-year-old white woman was admitted to the hospital on May 30, 2025, with findings of abdominal distention, nausea, and abdominal pain. She has had recurrent bouts of a similar type when seen in last November, undergoing enemas and disimpaction for a recurrent fecal impaction problem. The patient had a similar episode 10 years previously and taken by Dr. Connell disimpacted manually, decompressing the colon from above and below. It is likely that diverticula contributed to her issue, though she may have a primary dysmotility problem as well. She most recently presented to the emergency room, initially evaluated by Dr. Zhu with complaints of nausea, vomiting, and abdominal pain for the preceding several days. She was quite markedly troubled by this problem with a blood pressure as low as 69 systolic. She is noted to have a white count of 12.54. CT scan showing a large volume of fecal material in the rectal vault in the distal sigmoid with circumferential wall thickening and inflammation involving the splenic flexure and left colon and more proximal dilation of the colon with air-fluid levels. A stercoral colitis was deemed likely. A questionable abscess is noted in the region of the sacral hollow. She did require pressor agents, intensive care, IV antibiotics, and so forth, underwent colonoscopy. A biopsy was performed at that time, which confirmed adenocarcinoma. Her post colonoscopy course was rather problematic as she has had agitation and has likely underlying dementia and difficulty in maintaining venous lines and so forth. On May 31, 2025, she underwent laparotomy with end colostomy and rectal irrigation. Preoperative diagnosis at that time was rectal stercoral ulcer with abscess. No true abscess required drainage per my communication with Dr. Ramos. The patient has been improving with discontinuance of her intravenous Levophed as required postoperatively. Antibiotic therapy has been ongoing and Marie catheter was discontinued yesterday. Today, she is doing quite well overall. She is sitting up and is interactive and does not show signs of systemic sepsis. She is not having pain. The ostomy has been placed on the left side is viable and without obvious sign of ischemia. Preliminary drainage Electronically Signed By: AN MUSTAFA MD 06/10/25 1351 PATIENT NAME: AMELIA LEE CONSULTATION DATE OF : 36 REPORT #: [id number] PHYSICIAN: AN MUSTAFA MD PCP: RAMONITA MCGUIRE MD REPORT IS CONFIDENTIAL AND NOT TO BE RELEASED WITHOUT AUTHORIZATION [facility] [address] [place], [place] [address] Signed is being noted from this. PAST MEDICAL HISTORY: Does include: 1. Bleeding. 2. External hemorrhoids. 3. Constipation. 4. Low back pain. 5. Urinary tract infection. 6. History of vasovagal near syncopal episodes. MEDICINES: At time of admission included: 1. Synthroid. 2. Atenolol. 3. Lisinopril. 4. Atorvastatin. 5. Aspirin. REVIEW OF SYSTEMS: She denies any shortness of breath or chest pain at this time. She has no significant incisional pain PHYSICAL EXAMINATION: GENERAL: An elderly white woman, sitting up in a chair. VITAL SIGNS: Pulse is 75, blood pressure is 103/43, O2 saturation by pulse oximetry is between 85% and 92%, on nasal cannula between 6 and 8 L/minute. HEENT: Trachea is midline. CHEST: Shows normal respiratory excursion. ABDOMEN: Nontender. The ostomy is edematous . There is a small amount of fluid within the ostomy appliance. EXTREMITIES: Showed no clubbing, cyanosis, or edema. ASSESSMENT: The patient was considered to have a stercoral erosion of the rectum related to rectal impaction and has undergone intensive therapy including diverting colostomy. As it turns out, the pathology does show rectal carcinoma, which is notable particularly, she has had recurrent episodes over the past few years of similar type. Indeed, 10 years ago, was her 1st episode. I have assumed the ongoing care of the patient for the time being. The acute problem has been rectified and further management of the identified rectal cancer will be forthcoming. She has difficulty in many aspects, partly related to probable underlying dementia. Whether a radiation or chemotherapy based rectal cancer will be of Electronically Signed By: AN MUSTAFA MD 06/10/25 2333 PATIENT NAME: AMELIA LEE CONSULTATION DATE OF : 36 REPORT #: [id number] PHYSICIAN: AN MUSTAFA MD PCP: RAMONITA MCGUIRE MD REPORT IS CONFIDENTIAL AND NOT TO BE RELEASED WITHOUT AUTHORIZATION [address] [address] Signed benefit versus proctectomy with end colostomy remains to be determined. MD KB Estrada/MODL /[id number] cc: MD Ivan FOSTER MD Dr. Servin Copies: ~ Electronically Signed By: AN MUSTAFA MD 06/10/25 1351 PATIENT NAME: AMELIA LEE CONSULTATION DATE OF : 36 REPORT #: [id number] PHYSICIAN: AN MUSTAFA MD PCP: RAMONITA MCGUIRE MD REPORT IS CONFIDENTIAL AND NOT TO BE RELEASED WITHOUT AUTHORIZATION
== END 2025-06-08 15:30 | DRG 329 ==
LOC: ED 02:12 → CCU 05:28
PROVIDERS: Family Medicine; Internal Medicine; Student in an Organized Health Care Education/Training Program; ADMIT Surgery; ATTEND Student in an Organized Health Care Education/Training Program
PROC: 0T9B70Z Drainage of Bladder with Drainage Device, Via Natural or Artificial Opening (ICD-10-PCS; 2025-05-30)
PROC: 3E033XZ Introduction of Vasopressor into Peripheral Vein, Percutaneous Approach (ICD-10-PCS; 2025-05-30)
PROC: 3E03329 Introduction of Other Anti-infective into Peripheral Vein, Percutaneous Approach (ICD-10-PCS; 2025-05-30)
PROC: 02HV33Z Insertion of Infusion Device into Superior Vena Cava, Percutaneous Approach (ICD-10-PCS; 2025-05-30)
PROC: 3E043XZ Introduction of Vasopressor into Central Vein, Percutaneous Approach (ICD-10-PCS; 2025-05-30)
PROC: 0DBQ8ZX Excision of Anus, Via Natural or Artificial Opening Endoscopic, Diagnostic (ICD-10-PCS; 2025-05-30)
PROC: 0DBP8ZX Excision of Rectum, Via Natural or Artificial Opening Endoscopic, Diagnostic (ICD-10-PCS; 2025-05-30)
PROC: 0DCP8ZZ Extirpation of Matter from Rectum, Via Natural or Artificial Opening Endoscopic (ICD-10-PCS; 2025-05-30)
PROC: 4A033R1 Measurement of Arterial Saturation, Peripheral, Percutaneous Approach (ICD-10-PCS; 2025-05-31)
PROC: 0D1N0Z4 Bypass Sigmoid Colon to Cutaneous, Open Approach (ICD-10-PCS; principal; 2025-05-31 13:00)
PROC: 5A0935A Assistance with Respiratory Ventilation, Less than 24 Consecutive Hours, High Flow/Velocity Cannula (ICD-10-PCS; 2025-06-04)
DX: C20 Malignant neoplasm of rectum (principal); I50.33 Acute on chronic diastolic (congestive) heart failure; J96.01 Acute respiratory failure with hypoxia; K56.699 Other intestinal obstruction unspecified as to partial versus complete obstruction; K62.6 Ulcer of anus and rectum; N39.0 Urinary tract infection, site not specified; I13.0 Hypertensive heart and chronic kidney disease with heart failure and stage 1 through stage 4 chronic kidney disease, or unspecified chronic kidney disease; Z66 Do not resuscitate; Q43.8 Other specified congenital malformations of intestine; K59.39 Other megacolon; K61.1 Rectal abscess; J44.1 Chronic obstructive pulmonary disease with (acute) exacerbation; N17.9 Acute kidney failure, unspecified; I47.10 Supraventricular tachycardia, unspecified; H91.90 Unspecified hearing loss, unspecified ear; K56.41 Fecal impaction; E03.9 Hypothyroidism, unspecified; E78.5 Hyperlipidemia, unspecified; N18.2 Chronic kidney disease, stage 2 (mild); I95.9 Hypotension, unspecified; E86.0 Dehydration; I48.91 Unspecified atrial fibrillation; E16.2 Hypoglycemia, unspecified; E87.6 Hypokalemia; T38.0X5A Adverse effect of glucocorticoids and synthetic analogues, initial encounter; E83.42 Hypomagnesemia; Z88.6 Allergy status to analgesic agent; Z79.890 Hormone replacement therapy; Z79.82 Long term (current) use of aspirin
CPT/HCPCS: 00813; 00840; 36415; 36556; 36592; 36600; 51702; 71045; 71260; 74177; 74178; 76942; 80048; 80053; 81001; 81003; 82436; 82570; 82803; 83605; 83690; 83735; 83880; 84300; 84550; 85025; 85060; 85610; 86850; 86900; 86901; 87040; 87088; 88305; 88307; 92523; 93005; 93010; 93306; 94640; 94667; 94668; 94799; 96365; 96375; 96376; 97110; 97162; 97165; 97530; 97535; 99285-25; A9270; C1751; J0131; J0165; J0330; J0696; J0780; J1160; J1171; J1200; J1630; J1885; J1938; J2003; J2270; J2405; J2543; J2704; J2795; J2919; J3010; J3475; J3480; J3490; J7030; J7040; J7060; J7121; J7512; J7605; Q9967